=== PATIENT | male | born 1935 | race Caucasian/White ===

== ENCOUNTER 2017-04-24 09:07 | Emergency (ER) | payer MEDICARE ==
--- NOTE | 2017-04-24 10:01 | ED ---
General Adult HPI - General Chief complaint: Shortness of Breath Stated complaint: Asthma Time Seen by Provider: 04/24/17 09:54 Source: patient, RN notes reviewed Mode of arrival: ambulatory Limitations: no limitations - History of Present Illness Initial comments: Patient 81-year-old male significant past medical history for asthma, who presents emergency room today with chief complaint of cough congestion over the last 4 days. Patient states that it started as a head cold with increased rhinorrhea and drainage. He states it has gone to his chest now. He states he is coughing up phlegm at times. He states multiple colors. Patient denies any shortness breath. Denies any difficulty breathing. He does use an singular inhaler at home. Patient does admit that his appetites been down. He denies any other complaints. Patient denies any recent fever, chills, shortness of breath, chest pain, back pain, abdominal pain, vomiting, numbness or tingling, dysuria or hematuria, constipation or diarrhea, headaches or visual changes, or any other complaints. - Related Data Home Medications Medication Instructions Recorded Confirmed Budesonide/Formoterol Fumarate 2 puff INHALATION RT-BID 04/24/17 04/24/17 [Symbicort 160-4.5 Mcg Inhaler] Montelukast [Singulair] 10 mg PO HS 04/24/17 04/24/17 Pregabalin [Lyrica] 300 mg PO BID 04/24/17 04/24/17 Simvastatin (Unknown Dose) 1 tab PO HS 04/24/17 04/24/17 Previous Rx's Medication Instructions Recorded Azithromycin [Zithromax Z-pack] 0 mg PO DIRECTED #6 tab 04/24/17 Allergies Allergy/AdvReac Type Severity Reaction Status Date / Time Penicillins Allergy Unknown Verified 04/24/17 10:17 Childhood Review of Systems ROS Statement: Those systems with pertinent positive or pertinent negative responses have been documented in the HPI. ROS Other: All systems not noted in ROS Statement are negative. Past Medical History Past Medical History: Asthma, COPD, Pneumonia Additional Past Medical History / Comment(s): shingles in past History of Any Multi-Drug Resistant Organisms: None Reported Past Surgical History: No Surgical Hx Reported Past Psychological History: No Psychological Hx Reported Smoking Status: Former smoker Past Alcohol Use History: Rare Past Drug Use History: None Reported General Exam - General Exam Comments Initial Comments: General: The patient is awake and alert, in no distress, and does not appear acutely ill. Eye: Pupils are equal, round and reactive to light, extra-ocular movements are intact. No nystagmus. There is normal conjunctiva bilaterally. No signs of icterus. Ears, nose, mouth and throat: There are moist mucous membranes and no oral lesions. Neck: The neck is supple, there is no tenderness or JVD. Cardiovascular: There is a regular rate and rhythm. No murmur, rub or gallop is appreciated. Respiratory: Lungs are clear to auscultation, respirations are non-labored, breath sounds are equal. No wheezes, stridor, rales, or rhonchi. Musculoskeletal: Normal ROM, no tenderness. Strength 5/5. Sensation intact. Pulses equal bilaterally 2+. Neurological: A&O x 3. CN II-XII intact, There are no obvious motor or sensory deficits. Coordination appears grossly intact. Speech is normal. Skin: Skin is warm and dry and no rashes or lesions are noted. Psychiatric: Cooperative, appropriate mood & affect, normal judgment. Limitations: no limitations Course Vital Signs 04/24/17 09:46 Temperature 98.0 F Pulse Rate 85 Respiratory 16 Rate Blood Pressure 127/73 O2 Sat by Pulse 96 Oximetry Medical Decision Making - Medical Decision Making Case discussed in detail with attending physician Dr. Kaminski. Patient reexamined at this time shows no signs of distress resting comfortably. Patient 's x-ray reviewed and no sign of pneumonia. Patient treated for bronchitis infection. Patient advised follow-up the family doctor over the next 2 days return here to the emergency room for any symptoms increase worsen or for any other concerns. Disposition Clinical Impression: Acute bronchitis Disposition: HOME SELF-CARE Condition: Good Instructions: Acute Bronchitis (ED) Additional Instructions: Please use medication as discussed. Please follow-up with family doctor in the next 2 days of symptoms have not improved. Please return to emergency room if the symptoms increase or worsen or for any other concerns. Prescriptions: Azithromycin [Zithromax Z-pack] 0 mg PO DIRECTED #6 tab Referrals: Gus Thapa DO [Primary Care Provider] - 1-2 days Time of Disposition: 10:48
--- NOTE | 2017-04-24 10:29 | XR ---
EXAMINATION TYPE: XR chest 2V DATE OF EXAM: 04/24/2017 COMPARISON: NONE HISTORY: Shortness of breath TECHNIQUE: Frontal and lateral views of the chest are obtained. FINDINGS: Scattered senescent parenchymal changes noted. Hyperinflation compatible with COPD. No evidence for infiltrate. No evidence for atelectasis. Heart size is stable. Mediastinal structures are stable and grossly unremarkable. No evidence for hilar prominence. Degenerative changes dorsal spine. IMPRESSION: 1. No evidence for acute pulmonary disease.
[2017-04-24 11:26] VITALS: BP 142/81; PULSE 88; RESP 18; TEMP 97.3
== END 2017-04-24 11:26 | disposition home or self-care (01) ==
LOC: EC 09:07
DX: J20.9 Acute bronchitis, unspecified (principal); J44.9 Chronic obstructive pulmonary disease, unspecified; Z87.891 Personal history of nicotine dependence; Z79.52 Long term (current) use of systemic steroids; Z79.899 Other long term (current) drug therapy; Z88.0 Allergy status to penicillin
CPT/HCPCS: 71020; 99284

== ENCOUNTER → 2018-02-03 | Outpatient (CLI) | payer MEDICARE | END | disposition home or self-care (01) | LOC: LABWHC1 11:40 | PROVIDERS: ATTEND Internal Medicine Critical Care Medicine | DX: J45.901 Unspecified asthma with (acute) exacerbation (principal) | CPT/HCPCS: 36415; 82785 ==

== ENCOUNTER 2020-04-27 13:58 | Emergency (ER) | payer MEDICARE ==
[2020-04-27 14:08] VITALS: BP 136/80; PULSE 71; RESP 20; TEMP 97.9
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
--- NOTE | 2020-04-27 14:58 | XR ---
EXAMINATION TYPE: XR hand complete LT DATE OF EXAM: 04/27/2020 CLINICAL HISTORY: Pain after injury worse in second and third fingers. TECHNIQUE: Frontal, lateral and oblique images of the left hand are obtained. COMPARISON: None. FINDINGS: Osseous structures are demineralized. There is no acute fracture/dislocation evident in th e left hand. Fairly severe narrowing throughout the joint spaces in the fingers with mild to moderate spurring. Moderate to severe narrowing at base of first metacarpal. Mild to moderate soft tissue swe lling over the second through fourth fingers. IMPRESSION: There is no acute fracture or dislocation in the left hand.
== END 2020-04-27 15:34 | disposition home or self-care (01) ==
LOC: EC 13:58
DX: S60.222A Contusion of left hand, initial encounter (principal); J44.9 Chronic obstructive pulmonary disease, unspecified; Z79.51 Long term (current) use of inhaled steroids; Z88.0 Allergy status to penicillin; W01.0XXA Fall on same level from slipping, tripping and stumbling without subsequent striking against object, initial encounter; Y92.009 Unspecified place in unspecified non-institutional (private) residence as the place of occurrence of the external cause
CPT/HCPCS: 99283

== ENCOUNTER 2020-04-30 12:16 | Emergency (ER) | payer MEDICARE ==
[2020-04-30 12:31] VITALS: RESP 18; TEMP 98.6
[2020-04-30] MEDS ORDERED: SODIUM CHLORIDE 0.9% 1,000 ML IV STA (12:34)
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
[2020-04-30 13:06] LABS: Basophils # (A) 0.1 k/uL (0-0.2); Basophils % (A) 1 %; Eosinophils # (A) 0.3 k/uL (0-0.7); Eosinophils % (A) 4 %; HCT 45.1 % (39.0-53.0); HGB 15.3 gm/dL (13.0-17.5); Lymphocytes % (A) 27 %; MCH 32.2 pg (25.0-35.0); MCV 94.7 fL (80.0-100.0); Mean Platelet Volume 7.5; Monocytes # (A) 0.5 k/uL (0-1.0); Monocytes % (A) 6 %; Neutrophils # (A) 4.3 k/uL (1.3-7.7); Neutrophils % (A) 59 %; Platelet Count 221 k/uL (150-450); RBC 4.76 m/uL (4.30-5.90); RDW 13.2 % (11.5-15.5); WBC 7.4 k/uL (3.8-10.6)
[2020-04-30 13:14] LABS: Lactic Acid, Venous 1.1 mmol/L (0.7-2.0)
[2020-04-30 13:15] LABS: Partial Thromboplastin Time 23.4 sec (22.0-30.0); Prothrombin Time 10.2 sec (9.0-12.0)
[2020-04-30 13:18] LABS: ALT 17 U/L (4-49); AST 26 U/L (17-59); African American GFR (CKD) 81 (>60 ml/min/1.73 sqM); Albumin 4.4 g/dL (3.5-5.0); Alkaline Phosphatase 93 U/L (38-126); Anion Gap 10 mmol/L; Blood Urea Nitrogen 17 mg/dL (9-20); C Reactive Protein <5.0 mg/L (<10.0); Calcium 10.1 mg/dL (8.4-10.2); Carbon Dioxide 21 mmol/L (22-30); Chloride 108 mmol/L (98-107); Glucose 100 mg/dL (74-99); Non-African American GFR(CKD) 70 (>60 ml/min/1.73 sqM); Potassium 4.3 mmol/L (3.5-5.1); Sodium 139 mmol/L (137-145); Total Bilirubin 0.8 mg/dL (0.2-1.3); Total Protein 7.3 g/dL (6.3-8.2)
--- NOTE | 2020-04-30 13:30 | XR ---
EXAMINATION TYPE: XR chest 1V portable DATE OF EXAM: 04/30/2020 COMPARISON: Chest x-ray April 24, 2017. HISTORY: Weakness and shortness of breath TECHNIQUE: Single AP portable frontal upright view of the chest is obtained. FINDINGS: There is some chronic parenchymal changes bilaterally with diminished inspiration and patc hy left basilar opacity. The cardiac silhouette size is mildly enlarged with atherosclerotic aorta. The osseous structures are somewhat demineralized. IMPRESSION: Suboptimal due to poor inspiration. Mild cardiomegaly may be exaggerated by poor inspira tion. Chronic parenchymal changes with patchy left basilar atelectasis and/or infiltrate.
[2020-04-30] MEDS ORDERED: ONDANSETRON 4 MG ODT STARTER PACK 2 TAB BTL PO STA (14:10)
[2020-04-30 14:40] VITALS: BP 145/98; PULSE 80
== END 2020-04-30 14:40 | disposition home or self-care (01) ==
LOC: EC 12:16
DX: R19.7 Diarrhea, unspecified (principal); R53.1 Weakness; J44.9 Chronic obstructive pulmonary disease, unspecified; R63.0 Anorexia; R11.0 Nausea; Z20.828 Contact with and (suspected) exposure to other viral communicable diseases; Z79.51 Long term (current) use of inhaled steroids; Z88.1 Allergy status to other antibiotic agents; Z88.0 Allergy status to penicillin; Z98.890 Other specified postprocedural states
CPT/HCPCS: 93005; 80053; 82140; 83605; 83735; 84443; 84484; 85025; 85610; 85730; 86140; 87635; 71045; 99285; 96360; 96361; S0119

== ENCOUNTER 2022-09-21 18:42 | Observation (INO) | payer OTHER, BC ==
--- NOTE | 2022-09-21 18:53 | ED ---
Weakness HPI - General Stated complaint: Weakness Time Seen by Provider: 09/21/22 18:44 Source: patient, EMS, RN notes reviewed Mode of arrival: EMS - History of Present Illness Initial comments: 87-year-old male with a history of asthma the past and possibly early dementia who is brought in by EMS because of progressive weakness today and decreased oral intake. He celebrated his 87th yesterday and did not finish his meal has normally would have in today he's had very little oral intake. No reports of any falls trauma fevers chills sweats. Per paramedics she was noted to go into a brief episode less than 1 minute of what appear to be atrial fibrillation with a rapid ventricular response rate in the ambulance prior to him being hooked up to a monitor. This resolved. The patient himself denies any history of atrial fibrillation. Currently no chest pain he denies any fevers chills sweats MD Complaint: generalized weakness, lack of energy - Related Data Home Medications Medication Instructions Recorded Confirmed Budesonide/Formoterol Fumarate 2 puff INHALATION RT-BID 04/24/17 04/25/17 [Symbicort 160-4.5 Mcg Inhaler] Montelukast [Singulair] 10 mg PO HS 04/24/17 04/25/17 Albuterol Inhaler [Ventolin Hfa 1 - 2 puff INHALATION RT-Q6H PRN 04/25/17 04/25/17 Inhaler] Simvastatin 40 mg PO HS 04/25/17 04/25/17 Pregabalin [Lyrica] 150 mg PO TID 09/21/22 09/21/22 Allergies Allergy/AdvReac Type Severity Reaction Status Date / Time ciprofloxacin [From Cipro] Allergy Unknown Verified 09/21/22 20:12 Penicillins Allergy Unknown Verified 09/21/22 20:12 Childhood Review of Systems ROS Statement: Those systems with pertinent positive or pertinent negative responses have been documented in the HPI. ROS Other: All systems not noted in ROS Statement are negative. Past Medical History Past Medical History: Asthma, COPD Additional Past Medical History / Comment(s): shingles L groin/L hip/buttock in past and has post herpetic neuralgia, pt is currently being tested for possible glaucoma. History of Any Multi-Drug Resistant Organisms: None Reported Past Surgical History: Hernia Repair Additional Past Surgical History / Comment(s): colonoscopy, hemorrhoidectomy, arm surgery after injury (cannot recall laterality). Past Anesthesia/Blood Transfusion Reactions: No Reported Reaction Past Psychological History: No Psychological Hx Reported Smoking Status: Never smoker Past Alcohol Use History: Rare Past Drug Use History: None Reported - Past Family History Father History Unknown: Yes Additional Family Medical History / Comment(s): Father in WWII, when pt was young. Mother History Unknown: Yes Additional Family Medical History / Comment(s): Mother left when pt was 5 yrs old. Pt was raised by his grandmother. General Exam - General Exam Comments Initial Comments: This is a well-developed well-nourished awake alert male he appears to be oriented x3 General appearance: alert, in no apparent distress Head exam: Present: atraumatic, normocephalic, normal inspection Eye exam: Present: normal appearance, PERRL, EOMI. Absent: scleral icterus, co njunctival injection, periorbital swelling ENT exam: Present: mucous membranes dry Neck exam: Present: normal inspection. Absent: tenderness, meningismus, lymphadenopathy Respiratory exam: Present: decreased breath sounds. Absent: respiratory distress, wheezes, rales, rhonchi, stridor Cardiovascular Exam: Present: regular rate, normal rhythm, normal heart sounds. Absent: systolic murmur, diastolic murmur, rubs, gallop, clicks GI/Abdominal exam: Present: soft, normal bowel sounds. Absent: distended, tenderness, guarding, rebound, rigid Extremities exam: Present: normal inspection, full ROM, normal capillary refill. Absent: tenderness, pedal edema, joint swelling, calf tenderness Back exam: Present: normal inspection Neurological exam: Present: alert, oriented X3, CN II-XII intact Psychiatric exam: Present: normal affect, normal mood Skin exam: Present: warm, dry, intact, normal color. Absent: rash Course Vital Signs 09/21/22 18:43 Temperature 97.3 F L Pulse Rate 72 Respiratory 16 Rate Blood Pressure 110/74 O2 Sat by Pulse 96 Oximetry EKG Findings - EKG Results: EKG: interpreted by SANCHO (EKG interpreted by me sinus rhythm rate 75 first 3 AV block [place] interval 224 QRS duration 76 daily since QTC 373/[address]-T wave changes) Medical Decision Making - Medical Decision Making Did discuss findings with the patient and family members were present patient apparently took his Lyrica yesterday with 2 beers while he was celebrating his birthday but additionally he had had multiple dizzy episodes at home this morning and also in the EMS rig and route to. He was reported to have had A. fib RVR that appeared on the monitor but they were unable to capture the event. Of this patient will be admitted for evaluation by cardiology concern for paroxysmal atrial fibrillation which the patient is ever had before. This including his weakness. Laboratory thus far is unremarkable UA pending. I did discuss this with Debi hogan for Dr. Guajardo.Was pt. sent in by a medical professional or institution (, PA, [employer], urgent care, hospital, or alf...) When possible be specific @ -Paramedics upon arrival Did you speak to anyone other than the patient for history (EMS, parent, family, police, friend...)? What history was obtained from this source @ -Paramedics upon arrival Did you review nursing and triage notes (agree or disagree)? Why? @ -I reviewed and agree with nursing and triage notes Were old charts reviewed (outside hosp., previous admission, EMS record, old EKG, old radiological studies, urgent care reports/EKG's, alf records)? Report findings @ -No old charts were reviewed Differential Diagnosis (chest pain, altered mental status, abdominal pain women, abdominal pain men, vaginal bleeding, weakness, fever, dyspnea, syncope, heada martha, dizziness, GI bleed, back pain, seizure, CVA, palpatations, mental health, musculoskeletal)? @ -Weakness, dehydration, paroxysmal atrial fibrillation EKG interpreted by me (3pts min.). @ -As above X-rays interpreted by me (1pt min.). @ -As above CT interpreted by me (1pt min.). @ -As above U/S interpreted by me (1pt. min.). @ -None done What testing was considered but not performed or refused? (CT, X-rays, U/S, labs)? Why? @ -None What meds were considered but not given or refused? Why? @ -None Did you discuss the management of the patient with other professionals (professionals i.e. , PA, [employer], lab, RT, psych nurse, social welfare research worker, wait[place] tribunal member, teacher, chief analytics officer, oil field caser)? Give summary @ -Debi hogan for Dr. Guajardo Was smoking cessation discussed for >3mins.? @ -No Was critical care preformed (if so, how long)? @ -No Were there social determinants of health that impacted care today? How? (Ho melessness, low income, unemployed, alcoholism, drug addiction, transportation, low edu. Level, literacy, decrease access to med. care, usp, rehab)? @ -No Was there de-escalation of care discussed even if they declined (Discuss DNR or withdrawal of care, Hospice)? DNR status @ -No What co-morbidities impacted this encounter? (DM, HTN, Smoking, COPD, CAD, Cancer, CVA, ARF, Chemo, Hep., AIDS, mental health diagnosis, sleep apnea, morbid obesity)? @ -[Dementia Was patient admitted / discharged? Hospital course, mention meds given and route, prescriptions, significant lab abnormalities, going to OR and other pertinent info. @ -hospital course the patient was admitted for inpatient evaluation and treatment patient does demonstrate generalized weakness some evidence clinically of dehydration additionally concern for paroxysmal atrial fibrillation. Undiagnosed new problem with uncertain prognosis? @ -Paroxysmal rapid atrial fibrillation Drug Therapy requiring intensive monitoring for toxicity (Heparin, Nitro, Insulin, Cardizem)? @ -No Were any procedures done? @ -No Diagnosis/symptom? @ -Generalized weakness, dizzy episodes, paroxysmal atrial fibrillation Acute, or Chronic, or Acute on Chronic? @ -Acute Uncomplicated (without systemic symptoms) or Complicated (systemic symptoms)? @ -default Side effects of treatment? @ -No Exacerbation, Progression, or Severe Exacerbation? @ -No Poses a threat to life or bodily function? How? (Chest pain, [place], [place], pneumonia, PE, COPD, DKA, ARF, appy, cholecystitis, CVA, Diverticulitis, Homicidal, Suicidal, threat to staff... and all critical care pts) @ -No - Lab Data Result diagrams: 09/21/22 18:57 09/21/22 18:57 Lab Results 09/21/22 09/21/22 09/21/22 Range/Units 18:57 18:57 18:57 WBC 7.3 (3.8-10.6) k/uL RBC 4.28 L (4.30-5.90) m/uL Hgb 13.5 (13.0-17.5) gm/dL Hct 40.3 (39.0-53.0) % MCV 94.2 (80.0-100.0) fL MCH 31.5 (25.0-35.0) pg MCHC 33.4 (31.0-37.0) g/dL RDW 12.9 (11.5-15.5) % Plt Count 235 (150-450) k/uL MPV 8.0 Neutrophils % 57 % Lymphocytes % 32 % Monocytes % 6 % Eosinophils % 3 % Basophils % 1 % Neutrophils # 4.1 (1.3-7.7) k/uL Lymphocytes # 2.3 (1.0-4.8) k/uL Monocytes # 0.5 (0-1.0) k/uL Eosinophils # 0.2 (0-0.7) k/uL Basophils # 0.0 (0-0.2) k/uL Sodium 138 (137-145) mmol/L Potassium 4.1 (3.5-5.1) mmol/L Chloride 109 H (98-107) mmol/L Carbon Dioxide 19 L (22-30) mmol/L Anion Gap 10 mmol/L BUN 17 (9-20) mg/dL Creatinine 0.98 (0.66-1.25) mg/dL Est GFR (CKD-EPI)AfAm 82 (>60 ml/min/1.73 sqM) Est GFR (CKD-EPI)NonAf 71 (>60 ml/min/1.73 sqM) Glucose 93 (74-99) mg/dL Plasma Lactic Acid Derek 0.9 (0.7-2.0) mmol/L Calcium 9.5 (8.4-10.2) mg/dL Magnesium 1.9 (1.6-2.3) mg/dL Total Bilirubin 1.0 (0.2-1.3) mg/dL AST 25 (17-59) U/L ALT 13 (4-49) U/L Alkaline Phosphatase 82 (38-126) U/L Creatine Kinase 45 L (55-170) U/L Troponin I (0.000-0.034) ng/mL Total Protein 6.2 L (6.3-8.2) g/dL Albumin 3.6 (3.5-5.0) g/dL Lipase 100 (23-300) U/L TSH 1.680 (0.465-4.680) mIU/L Influenza Type A (PCR) (Not Detectd) Influenza Type B (PCR) (Not Detectd) RSV (PCR) (Not Detectd) SARS-CoV-2 (PCR) (Not Detectd) 09/21/22 09/21/22 Range/Units 18:57 18:57 WBC (3.8-10.6) k/uL RBC (4.30-5.90) m/uL Hgb (13.0-17.5) gm/dL Hct (39.0-53.0) % MCV (80.0-100.0) fL MCH (25.0-35.0) pg MCHC (31.0-37.0) g/dL RDW (11.5-15.5) % Plt Count (150-450) k/uL MPV Neutrophils % % Lymphocytes % % Monocytes % % Eosinophils % % Basophils % % Neutrophils # (1.3-7.7) k/uL Lymphocytes # (1.0-4.8) k/uL Monocytes # (0-1.0) k/uL Eosinophils # (0-0.7) k/uL Basophils # (0-0.2) k/uL Sodium (137-145) mmol/L Potassium (3.5-5.1) mmol/L Chloride (98-107) mmol/L Carbon Dioxide (22-30) mmol/L Anion Gap mmol/L BUN (9-20) mg/dL Creatinine (0.66-1.25) mg/dL Est GFR (CKD-EPI)AfAm (>60 ml/min/1.73 sqM) Est GFR (CKD-EPI)NonAf (>60 ml/min/1.73 sqM) Glucose (74-99) mg/dL Plasma Lactic Acid Derek (0.7-2.0) mmol/L Calcium (8.4-10.2) mg/dL Magnesium (1.6-2.3) mg/dL Total Bilirubin (0.2-1.3) mg/dL AST (17-59) U/L ALT (4-49) U/L Alkaline Phosphatase (38-126) U/L Creatine Kinase (55-170) U/L Troponin I <0.012 (0.000-0.034) ng/mL Total Protein (6.3-8.2) g/dL Albumin (3.5-5.0) g/dL Lipase (23-300) U/L TSH (0.465-4.680) mIU/L Influenza Type A (PCR) Not Detected (Not Detectd) Influenza Type B (PCR) Not Detected (Not Detectd) RSV (PCR) Not Detected (Not Detectd) SARS-CoV-2 (PCR) Not Detected (Not Detectd) - Radiology Data Interpreted by me: I did interpret the imaging CT showed no acute processes as did the x-rays show no acute processes. Disposition Clinical Impression: Paroxysmal atrial fibrillation, Weakness, Dizziness, History of dementia Disposition: ADMITTED IP TO THIS HOSP Condition: Stable Referrals: Gus Thapa DO [Primary Care Provider] - 1-2 days Decision Date: 09/21/22 Decision Time: 20:43
[2022-09-21 19:14] LABS: Basophils % (A) 1 %; Eosinophils # (A) 0.2 k/uL (0-0.7); Eosinophils % (A) 3 %; HCT 40.3 % (39.0-53.0); HGB 13.5 gm/dL (13.0-17.5); Lymphocytes # (A) 2.3 k/uL (1.0-4.8); Lymphocytes % (A) 32 %; MCH 31.5 pg (25.0-35.0); MCHC 33.4 g/dL (31.0-37.0); MCV 94.2 fL (80.0-100.0); Monocytes # (A) 0.5 k/uL (0-1.0); Monocytes % (A) 6 %; Neutrophils # (A) 4.1 k/uL (1.3-7.7); Neutrophils % (A) 57 %; Platelet Count 235 k/uL (150-450); RBC 4.28 m/uL (4.30-5.90); RDW 12.9 % (11.5-15.5); WBC 7.3 k/uL (3.8-10.6)
--- NOTE | 2022-09-21 19:15 | XR ---
EXAMINATION TYPE: XR chest 2V DATE OF EXAM: 09/21/2022 7:12 PM COMPARISON: Chest x-ray 04/30/2020 TECHNIQUE: XR chest 2V . CLINICAL INDICATION:Male, 87 years old with history of Weakness; FINDINGS: Lungs/Pleura: There is no evidence of pleural effusion, focal consolidation, or pneumothorax. Pulmonary vascularity: Unremarkable. Heart/mediastinum: Cardiomediastinal silhouette is unremarkable. Atherosclerotic calcifications are seen in the aorta. Musculoskeletal: Multiple level degenerative disc disease changes seen throughout the spine. IMPRESSION: No acute cardiopulmonary disease/process.
[2022-09-21 19:22] LABS: ALT 13 U/L (4-49); AST 25 U/L (17-59); African American GFR (CKD) 82 (>60 ml/min/1.73 sqM); Albumin 3.6 g/dL (3.5-5.0); Alkaline Phosphatase 82 U/L (38-126); Anion Gap 10 mmol/L; Blood Urea Nitrogen 17 mg/dL (9-20); Calcium 9.5 mg/dL (8.4-10.2); Carbon Dioxide 19 mmol/L (22-30); Chloride 109 mmol/L (98-107); Creatine Kinase 45 U/L (55-170); Glucose 93 mg/dL (74-99); Lipase 100 U/L (23-300); Magnesium 1.9 mg/dL (1.6-2.3); Non-African American GFR(CKD) 71 (>60 ml/min/1.73 sqM); Potassium 4.1 mmol/L (3.5-5.1); Sodium 138 mmol/L (137-145); Total Protein 6.2 g/dL (6.3-8.2)
--- NOTE | 2022-09-21 20:19 | CT ---
EXAMINATION TYPE: CT brain wo con CT DLP: 1204.1 mGycm, Automated exposure control for dose reduction was used. DATE OF EXAM: 09/21/2022 8:12 PM COMPARISON: No relevant priors. CLINICAL INDICATION:Male, 87 years old with history of altered mental status, AMS TECHNIQUE: Brain: Axial CT images of the brain were obtained with coronal and sagittal reformats created and rev iewed. Contrast used: None. Oral contrast used: None. FINDINGS: Brain: Extra-axial spaces: No abnormal extra-axial fluid collections. Ventricular system: Dilatation in proportion to cerebral atrophy. Cerebral parenchyma: Mild cerebral atrophy. No acute intraparenchymal hemorrhage or mass effect. Rj ateral remote lacunar injuries of the caudate. The valderrama-white junction is well differentiated. Scatte red hypoattenuating areas are seen within the white matter. Cerebellum: Unremarkable. Mass effect: No evidence of midline shift. Intracranial vasculature: Atherosclerotic calcifications of the intracranial vessels. Soft tissues: Normal. Calvarium/osseous structures: No depressed skull fracture. Paranasal sinuses and mastoid air cells: Clear. Mastoid air cells are Clear Visualized orbits: Orbital contents are intact. IMPRESSION: 1. No acute intracranial process. 2. Nonspecific white matter changes, likely secondary to chronic small vessel ischemic disease. 3. Remote lacunar injuries of the caudate bilaterally.
[2022-09-21] MEDS ORDERED: ACETAMINOPHEN TAB 325 MG TAB PO PRN (20:43)
[2022-09-21] MEDS ORDERED: NALOXONE 0.4 MG/ML 1 ML VIAL IV PRN (20:43)
[2022-09-21] MEDS ORDERED: SODIUM CHLORIDE 0.9% 1,000 ML IV SCH (20:45)
[2022-09-21] MEDS ORDERED: ALBUTEROL NEBULIZED 2.5 MG/3 ML INHALATION PRN (20:45)
[2022-09-21] MEDS ORDERED: PREGABALIN 75 MG CAP PO SCH (22:00)
[2022-09-21] MEDS: MONTELUKAST 10 MG TAB PO SCH (22:11)
[2022-09-22] MEDS: LACTATED RINGERS 1,000 ML IV SCH ×2 (05:59→20:43)
[2022-09-22 08:22] LABS: Calcium 9.5 mg/dL (8.4-10.2); Magnesium 2.1 mg/dL (1.6-2.3); Potassium 4.2 mmol/L (3.5-5.1)
[2022-09-22] MEDS ORDERED: PREGABALIN 75 MG CAP PO SCH (09:00)
[2022-09-22] MEDS: SYMBICORT 160-4.5 MCG INHALER INHALATION SCH ×2 (09:07→21:47)
--- NOTE | 2022-09-22 09:54 | P.HPIM ---
History of Present Illness This is a pleasant 87 years old male with past medical history of asthma, hyperlipidemia Patient states that he comes to the hospital because his son called for EMS when he had an attack of presyncope and dizziness which lasted for about 15 minutes. Currently he denies any dizziness or presyncope. He denies vertigo. He denies headache, no weakness numbness or blurred vision or speech. He denies chest pain or dyspnea. He denies abdominal pain vomiting or diarrhea, no urinary complaints like urgency or dysuria. He has sloppy tied for about 10 days and his been feeling weak over the last 2 days at least and embedded. He states that his weakness is better today and he ate better this morning. He denies smoking alcohol or illicit tracts Patient states that he takes Lyrica for left lower back shingles about 10 years ago, and was taken 150 mg and he agrees to lower to 100 mg twice a day Patient hemodynamically stable, afebrile CBC is unremarkable, BMP, liver enzymes are unremarkable as well Troponin 3 are negative less than 0.012. Creatinine kinase 45. TSH normal 1.6. Lipase low 100. 3 viruses of not detected, and flow on Ziac, RSV and coronavirus Chest x-ray: No Acute process. EKG: Normal sinus rhythm at [address]-T changes. First-degree AV block CT of the brain: No acute process. Remote lacunar injury to the caudate bilaterally patient was admitted with cardiology consult, although the patient had a normal EKG but there was mention of reflux episode of atrial fibrillation and RVR in the ambulance. Review of Systems Review of systems CONSTITUTIONAL: No fever, no malaise, no fatigue. HEENT: No recent visual problems or hearing problems. Denied any sore throat. CARDIOVASCULAR: No orthopnea, PND, no palpitations, no syncope. PULMONARY: No chest wall tenderness, no hemoptysis. GASTROINTESTINAL: No diarrhea, no nausea, no vomiting, no abdominal pain. Normoactive bowel sounds. NEUROLOGICAL: No headaches, no weakness, no numbness. HEMATOLOGICAL: Denies any bleeding or petechiae. GENITOURINARY: Denies any burning micturition, frequency, or urgency. MUSCULOSKELETAL/RHEUMATOLOGICAL: Denies any joint pain, swelling, or any muscle pain. ENDOCRINE: Denies any polyuria or polydipsia. Past Medical History Past Medical History: Asthma, Hyperlipidemia Additional Past Medical History / Comment(s): shingles L groin/L hip/buttock in past and has post herpetic neuralgia, glaucoma. History of Any Multi-Drug Resistant Organisms: None Reported Past Surgical History: Hernia Repair Additional Past Surgical History / Comment(s): colonoscopy, hemorrhoidectomy, arm surgery after injury (cannot recall laterality). Past Anesthesia/Blood Transfusion Reactions: No Reported Reaction Past Psychological History: No Psychological Hx Reported Additional Psychological History / Comment(s): Pt resides with his spouse. He is an [employer] who served over in [employer]. He is independent. Smoking Status: Never smoker Past Alcohol Use History: Rare Additional Past Alcohol Use History / Comment(s): Pt started smoking in 1954 and quit in 1976 Past Drug Use History: None Reported - Past Family History Father History Unknown: Yes Additional Family Medical History / Comment(s): Father in WWII, when pt was young. Mother History Unknown: Yes Additional Family Medical History / Comment(s): Mother left when pt was 5 yrs old. Pt was raised by his grandmother. Medications and Allergies Home Medications Medication Instructions Recorded Confirmed Type Budesonide/Formoterol Fumarate 2 puff INHALATION RT-BID 04/24/17 09/21/22 History [Symbicort 160-4.5 Mcg Inhaler] Montelukast [Singulair] 10 mg PO HS 04/24/17 09/21/22 History Albuterol Inhaler [Ventolin Hfa 1 - 2 puff INHALATION RT-Q6H PRN 04/25/17 09/21/22 History Inhaler] Simvastatin 40 mg PO DIRECTED 04/25/17 09/21/22 History Pregabalin [Lyrica] 150 mg PO TID 09/21/22 09/21/22 History Allergies Allergy/AdvReac Type Severity Reaction Status Date / Time ciprofloxacin [From Cipro] Allergy Unknown Verified 09/21/22 20:12 Penicillins Allergy Unknown Verified 09/21/22 20:12 Childhood Physical Exam Vitals: Vital Signs Temp Pulse Pulse Resp BP BP Pulse Ox 09/22/22 04:00 62 18 136/73 97 09/22/22 00:00 98 F 77 18 136/77 95 09/21/22 21:37 98 F 76 18 130/73 94 L 09/21/22 20:54 82 17 119/88 96 09/21/22 18:43 97.3 F L 72 16 110/74 96 Intake and Output 09/21/22 09/22/22 09/22/22 22:59 06:59 14:59 Other: Weight 81.647 kg GENERAL: The patient is alert and oriented x3, not in any acute distress. Well developed, well nourished. HEENT: Pupils are round and equally reacting to light. EOMI. No scleral icterus. No conjunctival pallor. Normocephalic, atraumatic. No pharyngeal erythema. No thyromegaly. CARDIOVASCULAR: S1 and S2 present. No murmurs, rubs, or gallops. PULMONARY: Chest is clear to auscultation, no wheezing or crackles. ABDOMEN: Soft, nontender, nondistended, normoactive bowel sounds. No palpable organomegaly. MUSCULOSKELETAL: No joint swelling or deformity. EXTREMITIES: No cyanosis, clubbing, or pedal edema. NEUROLOGICAL: Gross neurological examination did not reveal any focal deficits. SKIN: No rashes. no petechiae. Results CBC & Chem 7: 09/21/22 18:57 09/22/22 07:25 Labs: Abnormal Lab Results - Last 24 Hours (Table) 09/21/22 09/21/22 Range/Units 18:57 18:57 RBC 4.28 L (4.30-5.90) m/uL Chloride 109 H (98-107) mmol/L Carbon Dioxide 19 L (22-30) mmol/L Creatine Kinase 45 L (55-170) U/L Total Protein 6.2 L (6.3-8.2) g/dL Thrombosis Risk Factor Assmnt - Choose All That Apply Any of the Below Risk Factors Present?: Yes Each Risk Factor Represents 3 Points: Age 75 years or older Thrombosis Risk Factor Assessment Total Risk Factor Score: 3 Thrombosis Risk Factor Assessment Level: Moderate Risk Assessment and Plan Assessment: Dizziness, presyncope which lasted for 15 minutes Questionable episode of atrial fibrillation Utilized weakness with low appetite. Rule out urinary tract infection, History of asthma Hyperlipidemia Report BILATERAL caudate lacunar injuries, incidental findings on CAT scan Continue gentle hydration Plan: Continue with telemetry monitoring Check echocardiogram Cardiology consult Continue with gentle hydration, currently on Ringer lactate 50 mL per hour Labs and medication were reviewed.. Continue same treatment. Continue with symptomatic treatment. Resume home medication. Monitor labs and vitals. DVT and GI prophylaxis. Further recommendations as per clinical course of the patient DVT prophylaxis: Subcutaneous heparin GI Prophylaxis: Pepcid PT/OT: Ordered and Pending Prognosis is guarded
[2022-09-22] MEDS: FAMOTIDINE 20 MG/2 ML VIAL IV SCH ×2 (10:37→20:43)
[2022-09-22] MEDS: HEPARIN SODIUM,PORCINE/PF 5,000 UNIT/0.5 ML SYRINGE SQ SCH ×2 (10:39→20:43)
--- NOTE | 2022-09-22 13:27 | P.CRDCN ---
History of Present Illness Consult date: 09/22/22 Requesting physician: Andra Guajardo Reason for Consult (text): weakness, dizziness, suspected paroxysmal atrial fibrillation Chief complaint: dizziness History of present illness: This is a pleasant 87-year-old gentleman with a history of hyperlipidemia, asthma and glaucoma as well as questionable dementia. The patient is a poor historian stating his keeps track of his medical history. Has no known history of hypertension or diabetes and no history of coronary artery disease. He does not follow with a sharepoint engineer. Presented via EMS after he became dizzy at home. Apparently was having dinner with his family did not complete his meal which she normally does. According to the patient his appetite has been poor over the past week and he's not been eating or drinking much. He became dizzy and family wanted him evaluated in the emergency department was question of paroxysmal atrial fibrillation noted by EMS however patient was not on a monitor at that time. EKG in admission showed sinus mechanism. Vital signs have been stable. He's been afebrile. Chest x-ray showed no acute cardiopulmonary disease/process. Computed tomography scan of the brain showed no acute intrac ranial process, nonspecific white matter changes likely secondary to chronic small vessel ischemic disease and remote lacunar injuries of the caudate bilaterally. Upon Review of telemetry appears patient has been mostly in sinus mechanism with frequent episodes of PAT but no clear evidence of atrial fibrillation. He denies further complaints of dizziness. Labs showed sodium 138, potassium 4.1, normal white blood cell count and hemoglobin, normal renal function, troponins negative 3 and normal TSH. He denies any complaints of worsening shortness of breath, orthopnea or PND. Denies any complaint of edema. Denies feeling any palpitations. Denies any chest discomfort. He's had no syncope or near syncope. Past Medical History Past Medical History: Asthma, Hyperlipidemia Additional Past Medical History / Comment(s): shingles L groin/L hip/buttock in past and has post herpetic neuralgia, glaucoma. History of Any Multi-Drug Resistant Organisms: None Reported Past Surgical History: Hernia Repair Additional Past Surgical History / Comment(s): colonoscopy, hemorrhoidectomy, arm surgery after injury (cannot recall laterality). Past Anesthesia/Blood Transfusion Reactions: No Reported Reaction Past Psychological History: No Psychological Hx Reported Additional Psychological History / Comment(s): Pt resides with his spouse. He is an [employer] who served over in [employer]. He is independent. Smoking Status: Never smoker Past Alcohol Use History: Rare Additional Past Alcohol Use History / Comment(s): Pt started smoking in 1954 and quit in 1976 Past Drug Use History: None Reported - Past Family History Father History Unknown: Yes Additional Family Medical History / Comment(s): Father in WWII, when pt was young. Mother History Unknown: Yes Additional Family Medical History / Comment(s): Mother left when pt was 5 yrs ol d. Pt was raised by his grandmother. Medications and Allergies Home Medications Medication Instructions Recorded Confirmed Type Budesonide/Formoterol Fumarate 2 puff INHALATION RT-BID 04/24/17 09/21/22 History [Symbicort 160-4.5 Mcg Inhaler] Montelukast [Singulair] 10 mg PO HS 04/24/17 09/21/22 History Albuterol Inhaler [Ventolin Hfa 1 - 2 puff INHALATION RT-Q6H PRN 04/25/17 09/21/22 History Inhaler] Simvastatin 40 mg PO DIRECTED 04/25/17 09/21/22 History Pregabalin [Lyrica] 150 mg PO TID 09/21/22 09/21/22 History Allergies Allergy/AdvReac Type Severity Reaction Status Date / Time ciprofloxacin [From Cipro] Allergy Unknown Verified 09/21/22 20:12 Penicillins Allergy Unknown Verified 09/21/22 20:12 Childhood Physical Exam Vitals: Vital Signs Temp Pulse Pulse Resp BP BP Pulse Ox 09/22/22 08:20 97.9 F 77 18 118/72 98 09/22/22 04:00 62 18 136/73 97 09/22/22 00:00 98 F 77 18 136/77 95 09/21/22 21:37 98 F 76 18 130/73 94 L 09/21/22 20:54 82 17 119/88 96 09/21/22 18:43 97.3 F L 72 16 110/74 96 Intake and Output 09/21/22 09/22/22 09/22/22 22:59 06:59 14:59 Other: Weight 81.647 kg PHYSICAL EXAMINATION: This is a 87-year-old gentleman in no apparent distress at the time of my examination. HEENT: Head is atraumatic, normocephalic. Pupils are equal, round. Sclerae anicteric. Conjunctivae are clear. Mucous membranes of the mouth are moist. Neck is supple. There is no elevated jugular venous pressure. No carotid bruit is heard. CHEST EXAMINATION: Clear to auscultation bilaterally. No wheezes rales or rhonchi. Respirations even and nonlabored. HEART EXAMINATION: Heart regular, positive S1 and S2. No S3. No S4. With a soft systolic murmur at the base. ABDOMEN: Soft, nontender. Bowel sounds are heard. No organomegaly noted. EXTREMITIES: 2+ peripheral pulses with no evidence of peripheral edema and no calf tenderness noted. NEUROLOGIC EXAMINATION: Patient is awake, alert and oriented x3. Results 09/21/22 18:57 09/22/22 07:25 Cardiac Enzymes 09/21/22 09/21/22 09/21/22 Range/Units 18:57 18:57 21:10 AST 25 (17-59) U/L Troponin I <0.012 <0.012 (0.000-0.034) ng/mL 09/22/22 Range/Units 00:14 AST (17-59) U/L Troponin I 0.013 (0.000-0.034) ng/mL CBC 09/21/22 Range/Units 18:57 WBC 7.3 (3.8-10.6) k/uL RBC 4.28 L (4.30-5.90) m/uL Hgb 13.5 (13.0-17.5) gm/dL Hct 40.3 (39.0-53.0) % Plt Count 235 (150-450) k/uL Comprehensive Metabolic Panel 09/21/22 09/22/22 Range/Units 18:57 07:25 Sodium 138 139 (137-145) mmol/L Potassium 4.1 4.2 (3.5-5.1) mmol/L Chloride 109 H 106 (98-107) mmol/L Carbon Dioxide 19 L 26 (22-30) mmol/L BUN 17 20 (9-20) mg/dL Creatinine 0.98 0.98 (0.66-1.25) mg/dL Glucose 93 88 (74-99) mg/dL Calcium 9.5 9.5 (8.4-10.2) mg/dL AST 25 (17-59) U/L ALT 13 (4-49) U/L Alkaline Phosphatase 82 (38-126) U/L Total Protein 6.2 L (6.3-8.2) g/dL Albumin 3.6 (3.5-5.0) g/dL Current Medications Generic Name Dose Route Start Last Admin Trade Name Freq PRN Reason Stop Dose Admin Acetaminophen 650 mg 09/21/22 20:43 Acetaminophen Tab 325 Mg Tab PO Q6HR PRN Mild Pain or Fever > 100.5 Albuterol Sulfate 2.5 mg 09/21/22 20:45 Albuterol Nebulized 2.5 Mg/3 Ml INHALATION RT-Q6H PRN Shortness Of Breath Budesonide/Formoterol Fumarate 2 puff 09/22/22 08:00 09/22/22 09:07 Symbicort 160-4.5 Mcg Inhaler INHALATION 2 puff RT-BID STACEY Administration Famotidine 20 mg 09/22/22 09:00 09/22/22 10:37 Famotidine 20 Mg/2 Ml Vial IV 20 mg Q12HR STACEY Administration Heparin Sodium (Porcine) 5,000 unit 09/22/22 09:00 09/22/22 10:39 Heparin Sodium,Porcine/Pf 5,000 Unit/0.5 Ml Syringe SQ 5,000 unit Q12HR STACEY Administration Lactated Ringer's 1,000 mls @ 50 mls/hr 09/21/22 23:15 09/22/22 05:59 Lactated Ringers IV 50 mls/hr .Q20H STACEY Administration Montelukast Sodium 10 mg 09/21/22 21:00 09/21/22 22:11 Montelukast 10 Mg Tab PO 10 mg HS STACEY Administration Naloxone HCl 0.2 mg 09/21/22 20:43 Naloxone 0.4 Mg/Ml 1 Ml Vial IV Q2M PRN Opioid Reversal Non-Formulary Medication 40 mg 09/21/22 20:45 Simvastatin [Simvastatin] PO DIRECTED STACEY Pregabalin 100 mg 09/22/22 21:00 Pregabalin 100 Mg Cap PO BID STACEY Intake and Output 09/21/22 09/22/22 09/22/22 22:59 06:59 14:59 Other: Weight 81.647 kg 09/21/22 18:57 09/22/22 07:25 EKG Interpretations (text) Normal sinus rhythm Assessment and Plan Assessment: #1 symptoms of dizziness and weakness, could be secondary to decreased oral intake over the past week dehydration #2 brief episodes PAT, asymptomatic #3 asthma #4 hyperlipidemia Plan: From cardiology's perspective we will obtain a 2-D echo with Doppler study. Continue to monitor on telemetry. We'll add low-dose beta manny. We will continue to follow the patient and make further recommendations accordingly. IMMIGRATION CONSULTANT note has been reviewed, I agree with a documented findings and plan of care. Patient was seen and examined.
[2022-09-22] MEDS: METOPROLOL TARTRATE 25 MG TAB PO SCH ×2 (16:17→20:43)
[2022-09-22 20:12] LABS: Appearance,Urine Clear (Clear); Bilirubin,Urine Negative (Negative); Blood,Urine Negative (Negative); Color,Urine Light Yellow; Glucose,Urine (UA) Negative (Negative); Ketones,Urine Negative (Negative); Leukocyte Esterase,Urine Negative (Negative); Nitrite,Urine Negative (Negative); Protein,Urine Negative (Negative); Specific Gravity,Urine 1.008 (1.001-1.035); Urobilinogen,Urine <2.0 mg/dL (<2.0)
[2022-09-22] MEDS: MONTELUKAST 10 MG TAB PO SCH (20:42)
[2022-09-22] MEDS: PREGABALIN 100 MG CAP PO SCH (20:43)
[2022-09-22] MEDS ORDERED: ATORVASTATIN 20 MG TAB PO SCH (21:00)
[2022-09-23] MEDS: LACTATED RINGERS 1,000 ML IV SCH (06:58)
[2022-09-23] MEDS: SYMBICORT 160-4.5 MCG INHALER INHALATION SCH (09:09)
[2022-09-23] MEDS: FAMOTIDINE 20 MG/2 ML VIAL IV SCH (09:17)
[2022-09-23] MEDS: METOPROLOL TARTRATE 25 MG TAB PO SCH (09:30)
[2022-09-23] MEDS: PREGABALIN 100 MG CAP PO SCH (09:30)
[2022-09-23 09:35] VITALS: BP 153/91; PULSE 70; RESP 18; TEMP 97.5
--- NOTE | 2022-09-23 10:21 | P.PN ---
Subjective HISTORY OF PRESENTING ILLNESS This is a pleasant 87-year-old gentleman with a history of hyperlipidemia, asthma and glaucoma as well as questionable dementia. The patient is a poor historian stating his keeps track of his medical history. Has no known history of hypertension or diabetes and no history of coronary artery disease. He does not follow with a manager mission. Presented via EMS after he became dizzy at home. Apparently was having dinner with his family did not complete his meal which she normally does. According to the patient his appetite has been poor over the past week and he's not been eating or drinking much. He became dizzy and family wanted him evaluated in the emergency department was question of paroxysmal atrial fibrillation noted by EMS however patient was not on a monitor at that time. EKG in admission showed sinus mechanism. Vital signs have been stable. He's been afebrile. Chest x-ray showed no acute cardiopulmonary disease/process. Computed tomography scan of the brain showed no acute intracra nial process, nonspecific white matter changes likely secondary to chronic small vessel ischemic disease and remote lacunar injuries of the caudate bilaterally. Upon Review of telemetry appears patient has been mostly in sinus mechanism with frequent episodes of PAT but no clear evidence of atrial fibrillation. He denies further complaints of dizziness. Labs showed sodium 138, potassium 4.1, normal white blood cell count and hemoglobin, normal renal function, troponins negative 3 and normal TSH. He denies any complaints of worsening shortness of breath, orthopnea or PND. Denies any complaint of edema. Denies feeling any palpitations. Denies any chest discomfort. He's had no syncope or near syncope. 09/23 Patient seen and examined. Patient denies any chest pain or pressure. He denies any lightheadedness or dizziness. States he feels better. Remains in sinus rhythm on telemetry. Echo pending. PHYSICAL EXAMINATION Vital signs reviewed. CONSTITUTIONAL: No apparent distress. HEENT: Head is normocephalic. Pupils are equal, round. Sclerae anicteric. Mucous membranes of the mouth are moist. No JVD. No carotid bruit. CHEST EXAMINATION: Lungs are clear to auscultation. No chest wall tenderness is noted on palpation or with deep breathing. HEART EXAMINATION: Regular rate and rhythm. S1, S2 heard. No murmurs, gallops or rub. ABDOMEN: Soft, nontender. Positive bowel sounds. EXTREMITIES: 2+ peripheral pulses, no lower extremity edema and no calf tenderness. NEUROLOGIC EXAMINATION: Patient is awake, alert however poor historian Assessment: #1 symptoms of dizziness and weakness, could be secondary to decreased oral intake over the past week dehydration, improved #2 brief episodes , asymptomatic #3 asthma #4 hyperlipidemia Plan: Appears to be at his baseline and states he feels improved. Await 2-D echo. If unrevealing patient may be discharged home from a cardiology standpoint. Continue low-dose beta manny. Objective - Vital Signs Vital signs: Vital Signs Temp 97.5 F L 09/23/22 08:00 Pulse 70 09/23/22 08:00 Resp 18 09/23/22 08:00 BP 153/91 09/23/22 08:00 Pulse Ox 95 09/23/22 08:00 FiO2 Intake & Output 09/22/22 09/23/22 09/23/22 18:59 06:59 18:59 Intake Total 0 Output Total 170 1400 Balance -170 -1400 0 Intake: Oral 0 Output: Urine 1400 Post Void Residual 170 Other: Voiding Method Toilet # Voids 1 1 - Labs CBC & Chem 7: 09/21/22 18:57 09/22/22 07:25
[2022-09-23] MEDS: HEPARIN SODIUM,PORCINE/PF 5,000 UNIT/0.5 ML SYRINGE SQ SCH (10:29)
--- NOTE | 2022-09-23 10:32 | CA ---
Transthoracic Echo Report Name: Giles Pavon Age: 87 Gender: M : 1935 Exam Date: 09/23/2022 08:51 Exam Location: [facility] Ht (in): 72 Wt (lb): 180 Ordering Physician: Thang Arrieta MD Attending/Referring Phys: [id number], Meenakshi Rotary Rig Engine Operator Katie Quezada, RUST Procedure CPT: Indications: Rule out heart disease Cardiac Hx: Technical Quality: Fair Contrast 1: Total Dose (mL): Contrast 2: Total Dose (mL): MEASUREMENTS (Male / Female) Normal Values 2D ECHO LV Diastolic Diameter PLAX 3.8 cm 4.2 - 5.9 / 3.9 - 5.3 cm LV Systolic Diameter PLAX 2.4 cm IVS Diastolic Thickness 1.4 cm 0.6 - 1.0 / 0.6 - 0.9 cm LVPW Diastolic Thickness 1.4 cm 0.6 - 1.0 / 0.6 - 0.9 cm LV Relative Wall Thickness 0.8 RV Internal Dim ED PLAX 3.1 cm LA Systolic Diameter LX 3.3 cm 3.0 - 4.0 / 2.7 - 3.8 cm LA Volume 67.3 cm??? 18 - 58 / 22 - 52 cm??? M-MODE Aortic Root Diameter MM 3.7 cm MV E Point Septal Separation 0.6 cm AV Cusp Separation MM 1.4 cm DOPPLER AV Peak Velocity 137.9 cm/s AV Peak Gradient 7.6 mmHg MV Area PHT 1.5 cm??? Mitral E Point Velocity 60.5 cm/s Mitral A Point Velocity 101.4 cm/s Mitral E to A Ratio 0.6 MV Deceleration Time 499.3 ms TR Peak Velocity 229.0 cm/s TR Peak Gradient 21.0 mmHg Right Ventricular Systolic Press 25.9 mmHg FINDINGS Left Ventricle Left ventricular ejection fraction is estimated at 55-60 %. Small left ventricular cavity. Moderate concentric left ventricular hypertrophy. Normal left ventricular wall motion. Mildly increased septal wall thickness. Right Ventricle Normal right ventricular size and function. Right ventricular systolic pressure within normal limits. Right Atrium Normal right atrial size. Left Atrium Mildly increased left atrial volume. Mitral Valve Structurally normal mitral valve. Aortic Valve Trileaflet aortic valve. No aortic valve stenosis or regurgitation. Tricuspid Valve Structurally normal tricuspid valve. Mild tricuspid regurgitation. Pulmonic Valve Structurally normal pulmonic valve. Mild pulmonic regurgitation. Pericardium Normal pericardium. No pericardial effusion. Aorta Normal size aortic root and proximal ascending aorta. CONCLUSIONS Technically difficult study for interpretation Normal LV systolic function Previewed by: Dr. Dominguez Crocker MD (Electronically Signed) Final Date: 23 September 2022 10:31
== END 2022-09-23 12:45 | disposition home or self-care (01) ==
LOC: EC 18:42 → 3SCARD 20:43 → INTOOBSV 20:43 → 3SCARD 20:51
PROVIDERS: ADMIT Hospitalist; ATTEND Hospitalist
DX: I48.0 Paroxysmal atrial fibrillation (principal); F03.90 Unspecified dementia, unspecified severity, without behavioral disturbance, psychotic disturbance, mood disturbance, and anxiety; J44.9 Chronic obstructive pulmonary disease, unspecified; I70.0 Atherosclerosis of aorta; E78.5 Hyperlipidemia, unspecified; I44.0 Atrioventricular block, first degree; I67.2 Cerebral atherosclerosis; I07.1 Rheumatic tricuspid insufficiency; I37.1 Nonrheumatic pulmonary valve insufficiency; H40.9 Unspecified glaucoma; Z79.51 Long term (current) use of inhaled steroids; Z79.899 Other long term (current) drug therapy; Z88.0 Allergy status to penicillin; Z63.4 Disappearance and death of family member; Z20.822 Contact with and (suspected) exposure to COVID-19; Z87.891 Personal history of nicotine dependence
CPT/HCPCS: 96376; 96372; 96374; 99285; 36415; 94640 ×3; 93005; 93306; 97161; 97165; 80053; 80048; 84443; 82550; 83605; 83690; 83735 ×2; 84484 ×2; 85025; 81003; 87636; 71046; 70450; G0378 ×3; J1644

== ENCOUNTER 2024-01-01 09:51 | Inpatient (IN) | payer OTHER, MEDICARE ==
[2024-01-01] MEDS ORDERED: LIDOCAINE 1% INJ 10MG/ML (20 ML MDV) ONE (10:00)
[2024-01-01] MEDS ORDERED: fentaNYL (PF) 50 MCG/ML 2 ML AMP ONE (10:00)
[2024-01-01] MEDS ORDERED: VERAPAMIL 2.5 MG/ML 2 ML AMP ONE (10:00)
[2024-01-01] MEDS ORDERED: HEPARIN SODIUM 1,000 UN/ML (10ML VL) ONE (10:00)
[2024-01-01] MEDS: IV FLUID CONTINUATION 900 ML IV ONE (11:10)
[2024-01-01] MEDS: MIDAZOLAM 2 MG/2 ML VIAL IVP ONE (11:10)
[2024-01-01] MEDS: HEPARIN SODIUM 1,000 UN/ML (10ML VL) IV ONE (11:16)
[2024-01-01] MEDS ORDERED: TIROFIBAN 12.5MG-250ML NS 250 ML IV SCH (11:30)
[2024-01-01] MEDS: TIROFIBAN 12.5MG-250ML NS 250 ML IV ONE (11:30)
[2024-01-01] MEDS: IOPAMIDOL-370 100ML BTL INJ ONE ×2 (11:53→12:23)
[2024-01-01] MEDS ORDERED: CLOPIDOGREL 75 MG TAB ONE (12:16)
[2024-01-01] MEDS: CLOPIDOGREL 75 MG TAB PO ONE (12:18)
[2024-01-01] MEDS: NITROGLYCERIN 1000MCG/10ML SYRINGE INTRACORON ONE (12:21)
[2024-01-01] MEDS: HEPARIN SODIUM,PORCINE 10,000 UNIT in SODIUM CHLORIDE 0.9% 1,000 ML IRRIGATION ONE (12:22)
[2024-01-01] MEDS: HEPARIN SODIUM,PORCINE (1 ML) 2,500 UNIT in SODIUM CHLORIDE 0.9% 250 ML IRRIGATION ONE (12:22)
[2024-01-01 13:07] LABS: Glucose,Whole Blood 80 mg/dL (70-110)
[2024-01-01] MEDS: SODIUM CHLORIDE 0.9% 1,000 ML IV SCH ×2 (15:05→19:43)
[2024-01-01] MEDS ORDERED: NITROGLYCERIN OINT 1 INCH/GM PACKET TOPICAL PRN (15:12)
[2024-01-01] MEDS: METOPROLOL TARTRATE 12.5 MG TAB PO SCH (15:37)
[2024-01-01] MEDS: TIROFIBAN 12.5MG-250ML NS 250 ML IV SCH (15:40)
[2024-01-01] MEDS: SYMBICORT 160-4.5 MCG INHALER INHALATION SCH (17:20)
[2024-01-01] MEDS: LORazepam 2 MG/ML INJ IV PRN (17:54)
[2024-01-01] MEDS: HALOPERIDOL LACTATE 5 MG/ML 1 ML VIAL IVP STA ×2 (18:10→19:34)
[2024-01-01] MEDS: PREGABALIN 75 MG CAP PO SCH (19:43)
[2024-01-01] MEDS: LOSARTAN 25 MG TAB PO SCH (19:46)
[2024-01-01] MEDS: MONTELUKAST 10 MG TAB PO SCH (19:46)
[2024-01-01] MEDS: PREGABALIN 50 MG CAP PO SCH (19:46)
[2024-01-01] MEDS: APIXABAN 2.5 MG TABLET PO SCH (19:46)
[2024-01-01] MEDS ORDERED: CALCIUM CARBONATE 500 MG CHEWABLE PO PRN (21:18)
[2024-01-01] MEDS ORDERED: ONDANSETRON 4 MG/2 ML VIAL IVP PRN (21:18)
[2024-01-01] MEDS ORDERED: MELATONIN 3 MG TABLET PO PRN (21:18)
[2024-01-01] MEDS ORDERED: NALOXONE 0.4 MG/ML 1 ML VIAL IV PRN (21:18)
[2024-01-01] MEDS ORDERED: LACTULOSE 20 GM/30 ML CUP PO PRN (21:18)
--- NOTE | 2024-01-01 21:22 | P.HPIM ---
History of Present Illness H&P Date: 01/01/24 Chief Complaint: CAD This is a 88-year-old patient, with Dr. Thapa. Who presented to [facility] on December 30. He presented there with chest pain. EMS reported low blood pressure received IV fluids. Ruled in for acute non-Q wave NE. Chronic stable medical conditions include hard of hearing, moderate to severe cognitive impairment, osteoarthritis, BPH, hyperlipidemia. This morning patient underwent cardiac catheterization found to have a totally occluded RCA and a proximal circumflex lesion of 90%. Patient was transferred here to [facility]. Dr. JEY Chi took the patient to Database Marketing Specialist and 4 stents were placed in the RCA. Patient was Alba started on Aggrastat to get the suspected thrombus in the mid RCA. Also possibly a stent in the proximal circumflex. Patient was seen by me initially in the Extended Stay unit. Later was brought to the ICU. Patient had become agitated and required Haldol. Review of systems: Cannot obtain patient sedated Social history: Retired entry level truck driver. . Alcohol occasionally. Physical examination: VITAL SIGNS: 96, 13, 126 x 72, 96% GENERAL: BMI 21.8, laying in bed, sedated. EYES: Pupils equal. Conjunctiva heather l. HEENT: External appearance of nose and ears normal, oral cavity grossly normal. Hard of hearing NECK: JVD unable to assess; masses not palpable. HEART: First and second heart sounds are normal; no edema. LUNGS: Respiratory rate normal; clear to auscultation. ABDOMEN: Soft, nontender, liver spleen not palpable, no masses palpable. PSYCH: Patient sedated l. MUSCULOSKELETAL:No Clubbing/cyanosis;muscles-grossly intact. OA NEUROLOGICAL: Cranial nerves grossly intact; no facial asymmetry, power and sensation grossly intact. LYMPHATICS: No lymph nodes palpable in the axilla and neck INVESTIGATIONS, reviewed in the clinical context: Lab work from [facility]: 2D echocardiogram EF 55 to 60%. Some LVH. Creatinine 1.13. BUN 17. LDL 118 EKG tracing personally reviewed by me-normal sinus rhythm. Chest x-ray film personally reviewed by me-unremarkable Assessment plan: -Acute non-Q wave NE, 2 days ago when patient presented to [facility] Aspirin. Plavix. Losartan. Lopressor -Coronary artery disease. Patient received 4 stents to the RCA and possibly 1 stent to the proximal circumflex. Aspirin Plavix -Possible med RCA thrombus. 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 Patient received Haldol -BPH Flomax 0.4 mg nightly Patient currently in ICU. Follow-up with cardiology. Past Medical History Past Medical History: Asthma, COPD, Hyperlipidemia, Prostate Disorder Additional Past Medical History / Comment(s): shingles L groin/L hip/buttock in past and has post herpetic neuralgia, glaucoma. History of Any Multi-Drug Resistant Organisms: None Reported Past Surgical History: Hernia Repair Additional Past Surgical History / Comment(s): colonoscopy, hemorrhoidectomy, arm surgery after injury (cannot recall laterality). Past Anesthesia/Blood Transfusion Reactions: No Reported Reaction Past Psychological History: No Psychological Hx Reported Additional Psychological History / Comment(s): Pt resides with his spouse. He is an [employer] who served over in [employer]. He is independent. Smoking Status: Former smoker Past Alcohol Use History: Rare Additional Past Alcohol Use History / Comment(s): Pt started smoking in 1954 and quit in 1976 Past Drug Use History: None Reported - Past Family History Father History Unknown: Yes Additional Family Medical History / Comment(s): Father in WWII, when pt was young. Mother History Unknown: Yes Additional Family Medical History / Comment(s): Mother left when pt was 5 yrs old. Pt was raised by his grandmother. Medications and Allergies Home Medications Medication Instructions Recorded Confirmed Type Albuterol Inhaler [Ventolin Hfa 1 - 2 puff INHALATION RT-Q6H PRN 04/25/17 01/01/24 History Inhaler] Latanoprost [Latanoprost 0.005%] 1 drop BOTH EYES HS 01/01/24 01/01/24 History Pregabalin [Lyrica] 75 mg PO BID 01/01/24 01/01/24 History Timolol 0.5% Ophth Soln [Timoptic 1 drop BOTH EYES DAILY 01/01/24 01/01/24 History 0.5% Ophth Soln] Allergies Allergy/AdvReac Type Severity Reaction Status Date / Time ciprofloxacin [From Cipro] Allergy Unknown Verified 01/01/24 14:08 Penicillins Allergy Unknown Verified 01/01/24 14:08 Childhood Physical Exam Vitals: Vital Signs Temp Pulse Resp BP Pulse Ox 01/01/24 19:00 92 23 119/71 96 01/01/24 18:00 96 13 126/72 96 01/01/24 17:00 76 16 125/73 97 01/01/24 16:00 97.8 F 80 21 125/75 94 L 01/01/24 15:00 83 12 123/74 95 01/01/24 14:00 84 21 140/73 96 01/01/24 13:10 97.1 F L 86 14 140/73 96 Intake and Output 01/01/24 01/01/24 01/01/24 06:59 14:59 22:59 Intake Total 350 575 Output Total 120 335 Balance 230 240 Intake: IV 350 375 Sodium Chloride 0.9% 1, 75 375 000 ml @ 75 mls/hr IV . [id number] [facility] Rx#:[id number] Oral 200 Output: Urine 120 335 Other: Voiding Method Indwelling Catheter # Bowel Movements 1 Weight 77 kg Thrombosis Risk Factor Assmnt - Choose All That Apply Any of the Below Risk Factors Present?: Yes Each Factor Represents 1 point: Acute NE Each Risk Factor Represents 3 Points: Age 75 years or older Other congenital or acquired thrombophilia - If yes, enter type in comment: No Thrombosis Risk Factor Assessment Total Risk Factor Score: 4 Thrombosis Risk Factor Assessment Level: Moderate Risk
[2024-01-01] MEDS: ATORVASTATIN 80 MG TAB PO SCH (21:26)
--- NOTE | 2024-01-01 21:54 | CC ---
CARDIAC CATHETERIZATION REPORT PROCEDURES: 1. Percutaneous transluminal coronary angioplasty and stenting of totally occluded proximal/mid right coronary artery with drug-eluting stents. 2. Intravascular ultrasound of right coronary artery post procedure. 3. Percutaneous transluminal coronary angioplasty and stenting of proximal nondominant circumflex coronary artery with a drug-eluting stent. 4. Intravascular ultrasound of circumflex coronary artery post procedure. PERFORMED BY: Dr. Golden Chi. ANESTHESIA: Moderate conscious sedation time was 71 minutes. The patient was administered Versed. Oxygen saturation, hemodynamics, and EKG were monitored closely. The patient's ACT was 209 and initial ACT was 280. Received heparin intravenously and also Aggrastat bolus and drip was started. The patient will be on aspirin and Plavix without interruption for 1 year. He is already on atorvastatin 40 mg daily, which will be continued with an LDL goal of under 70. CLINICAL INFORMATION: Mr. Giles Pavon is an 88-year-old gentleman, who was admitted because of chest pain to [facility] yesterday with complaints of chest tightness and pressure. The patient's family including and son and [id number] brought him to the hospital. His troponin was already elevated, was showing somewhat of a downward trend with a subacute MS. Echo revealed preserved systolic function and the patient again had chest pain this morning without EKG changes of significance, but because of his presentation of ongoing chest pain, even though it may have been a subacute non ST elevation MS. I recommended cardiac catheterization, which was performed at [facility], which revealed total occlusion of the proximal/mid RCA which was a dominant vessel and 80% to 90% stenosis of a nondominant circumflex. LAD did not have significant disease. He was transferred from [facility] to [facility] with a right radial sheath sutured in and on heparin drip. PROCEDURE NOTE: The existing 6-Dutch introducer was used to perform the procedure. I used a JR4 6- Dutch guide catheter to cannulate the right coronary artery. Using a combination of a 2.5 caliber NC Trek balloon and a short run-through wire, I crossed the total occlusion. Wire was kept distally. Multiple inflations were given with a 2.5 NC Trek balloon. I then dilated with a 3.5 caliber NC Trek balloon throughout the total occlusion area. Area was diffusely diseased. In the PLV also there was a subtotal occlusion. I used a 2.25 caliber 15 mm long NC Trek balloon to dilate the PLV branch. I then deployed a 28 mm long 3.25 caliber Xience stent in the mid/distal portion of the RCA and proximal to it, I had an 18 mm long 3.5 caliber stent and proximal to it was another 12 mm long 3.5 caliber Xience stent of 12 mm length. The entire stented area was then post dilated with a 4.0 caliber NC Trek balloon. I then performed intravascular ultrasound, which revealed full expansion of the stent and the diameter was comparable to the normal vessel. There was full stent expansion and excellent apposition of the stents were noted. I then turned my attention to circumflex coronary artery. I initially tried a JL 3.5, switched over to a JL 4.0 guide catheter and a run- through wire. The wire was kept distally. 2.5 caliber 12 mm NC Trek balloon was used to pre-dilate the lesion and a 2.75 caliber 12 mm long Xience stent was deployed at 14 atmospheres. The patient had excellent angiographic result. Intravascular ultrasound revealed full stent expansion, good apposition, and the diameter of the stented area was comparable to the normal vessel proximally. Excellent angiographic result was achieved. The sheath was taken out and TR band applied as per protocol. Saturation of the fingers of the right hand of 94%. The details of the procedure and results were discussed with the patient as well as his family members and he was sent to the [facility] in a stable condition. MMODL / IJN: [id number] /
[2024-01-02 01:28] LABS: African American GFR (CKD) >90 (>60 ml/min/1.73 sqM); Anion Gap 7 mmol/L; Blood Urea Nitrogen 19 mg/dL (9-20); Carbon Dioxide 16 mmol/L (22-30); Chloride 112 mmol/L (98-107); Glucose 77 mg/dL (74-99); Magnesium 1.8 mg/dL (1.6-2.3); Non-African American GFR(CKD) 83 (>60 ml/min/1.73 sqM); Potassium 3.7 mmol/L (3.5-5.1); Sodium 135 mmol/L (137-145)
[2024-01-02] MEDS ORDERED: Potassium Replacement Protocol 1 EACH MISC MISCELLANE PRN (02:32)
[2024-01-02] MEDS: POTASSIUM CHLORIDE 10 MEQ in WATER FOR INJECTION 1 100ML.BAG IVPB SCH (03:07)
[2024-01-02 06:13] LABS: Basophils % (A) 0 %; Eosinophils # (A) 0.1 k/uL (0-0.7); Eosinophils % (A) 1 %; HCT 29.8 % (39.0-53.0); HGB 10.4 gm/dL (13.0-17.5); Lymphocytes # (A) 1.4 k/uL (1.0-4.8); Lymphocytes % (A) 16 %; MCH 33.2 pg (25.0-35.0); MCHC 34.8 g/dL (31.0-37.0); MCV 95.3 fL (80.0-100.0); Mean Platelet Volume 8.6; Monocytes # (A) 0.8 k/uL (0-1.0); Monocytes % (A) 8 %; Neutrophils # (A) 6.7 k/uL (1.3-7.7); Neutrophils % (A) 74 %; Platelet Count 190 k/uL (150-450); RBC 3.13 m/uL (4.30-5.90); RDW 13.8 % (11.5-15.5); WBC 9.1 k/uL (3.8-10.6)
[2024-01-02 06:29] LABS: African American GFR (CKD) >90 (>60 ml/min/1.73 sqM); Anion Gap 6 mmol/L; Blood Urea Nitrogen 18 mg/dL (9-20); Calcium 9.2 mg/dL (8.4-10.2); Carbon Dioxide 18 mmol/L (22-30); Chloride 113 mmol/L (98-107); Glucose 85 mg/dL (74-99); Non-African American GFR(CKD) 80 (>60 ml/min/1.73 sqM); Potassium 3.8 mmol/L (3.5-5.1); Sodium 137 mmol/L (137-145)
[2024-01-02] MEDS: ASPIRIN 81 MG PO SCH (09:09)
[2024-01-02] MEDS: CLOPIDOGREL 75 MG TAB PO SCH (09:09)
[2024-01-02] MEDS: HALOPERIDOL LACTATE 5 MG/ML 1 ML VIAL IVP PRN (09:11)
[2024-01-02] MEDS: ACETAMINOPHEN TAB 325 MG TAB PO PRN (09:11)
[2024-01-02] MEDS: DOPamine DRIP 800 MG in DEXTROSE/WATER 1 250ML.BAG IV SCH (11:01)
[2024-01-02 12:38] VITALS: BMI 22.8
--- NOTE | 2024-01-02 13:23 | CA ---
Transthoracic Echo Report Name: Giles Pavon Age: 88 Gender: M : 1935 Exam Date: 01/02/2024 07:48 Exam Location: [facility] Ht (in): 74 Wt (lb): 177 Ordering Physician: Chico Chi MD ([id number]) Attending/Referring Phys: Ore Puncher Valeri Guerrero RDCS Procedure CPT: Indications: heart cath Cardiac Hx: Technical Quality: Poor, Technically difficult study, pt uncooperative Contrast 1: Definity Total Dose (mL): 2 Contrast 2: Total Dose (mL): MEASUREMENTS (Male / Female) Normal Values 2D ECHO LV Diastolic Diameter PLAX 4.9 cm 4.2 - 5.9 / 3.9 - 5.3 cm LV Systolic Diameter PLAX 2.8 cm IVS Diastolic Thickness 1.4 cm 0.6 - 1.0 / 0.6 - 0.9 cm LVPW Diastolic Thickness 1.8 cm 0.6 - 1.0 / 0.6 - 0.9 cm LV Relative Wall Thickness 0.6 RV Internal Dim ED PLAX 3.7 cm LVOT Diameter 2.1 cm LA Systolic Diameter LX 5.3 cm 3.0 - 4.0 / 2.7 - 3.8 cm M-MODE Aortic Root Diameter MM 3.7 cm LA Systolic Diameter MM 4.7 cm LA Ao Ratio MM 1.3 AV Cusp Separation MM 1.5 cm DOPPLER AV Peak Velocity 186.9 cm/s AV Peak Gradient 14.0 mmHg AV Mean Velocity 153.2 cm/s AV Mean Gradient 9.8 mmHg AV Velocity Time Integral 38.2 cm LVOT Peak Velocity 103.0 cm/s LVOT Peak Gradient 4.2 mmHg LVOT Velocity Time Integral 20.4 cm LVOT Stroke Volume 68.7 cm??? LVOT Stroke Volume Index 33.3 ml/m??? LVOT Cardiac Index 2923.6 cm???/min???m??? AV Area Cont Eq vti 1.8 cm??? AV Area Cont Eq pk 1.9 cm??? Mitral E Point Velocity 70.0 cm/s Mitral A Point Velocity 86.0 cm/s Mitral E to A Ratio 0.8 MV Deceleration Time 210.5 ms MV E' Velocity 5.4 cm/s Mitral E to MV E' Ratio 12.8 TR Peak Velocity 215.6 cm/s TR Peak Gradient 18.6 mmHg Right Ventricular Systolic Press 28.7 mmHg FINDINGS Left Ventricle Left ventricular ejection fraction is estimated at 55-60%. Moderately increased septal wall thickness. No obvious regional wall motion abnormalities. Left ventricular cavity size normal. Right Ventricle Mild right ventricular dilatation. Right ventricular systolic pressure within normal limits. Right Atrium Moderate right atrial dilatation. Left Atrium Severely increased left atrial diameter. Mitral Valve Mitral valve thickened. Mild mitral regurgitation. No mitral stenosis. Aortic Valve Trileaflet aortic valve. Diffuse thickening (sclerosis) of the aortic valve cusps without reduced excursion. No aortic regurgitation. Tricuspid Valve Structurally normal tricuspid valve. Mild tricuspid regurgitation. Pulmonic Valve Structurally normal pulmonic valve. Trace pulmonic regurgitation. Pericardium Small pericardial effusion. Aorta Aorta at upper limits of normal. CONCLUSIONS LVH with preserved systolic function Mild RV enlargement Biatrial enlargement Aortic sclerosis Previewed by: Dr. Maik Joya MD (Electronically Signed) Final Date: 02 January 2024 13:22
[2024-01-02] MEDS ORDERED: QUEtiapine 25 MG TAB PO PRN (14:04)
--- NOTE | 2024-01-02 14:12 | P.CN ---
Psychiatric Consult - . Consult date: 01/02/24 Consult:: 01/02/24 13:11 IDENTIFYING DATA: This patient is a 88-year-old male, currently lives with his in a mobile home, he has 1 son, he collects a pension REASON FOR REFERRAL: Psychiatry was consulted for mental status changes HISTORY OF PRESENT ILLNESS: The patient presented to the hospital initially on 12/31, transferred from [facility], patient was having chest pain hypotension, found to have a SC. He was transferred to [facility] as he was in need of stents during cardiac catheterization. Patient had 4 stents put in. Patient apparently has a history of dementia, he is hard of hearing, he received as needed Haldol and also Ativan for agitation. Primer Waterproofing Machine Operator spoke briefly with patient's nurse who stated that patient just received Ativan and was sleeping. Patient's provided most of the history, states that patient was agitated and has been confused, also states that he has had dementia for about a year now. She claims that his sleep has been on and off, she asked several questions about medications and his condition which were answered. She also provided further psychiatric and family and social history. Primer Waterproofing Machine Operator attempted to interact with patient and patient was not able to answer any questions, he was sound asleep and not following any directions, he had a one-to-one sitter. Patient's claims that he does not use any recreational drugs or cigarettes. PAST PSYCHIATRIC HISTORY: Patient has a a history of dementia. Patient is not on any psychiatric medications, does not have any significant psychiatric history. Past Medical History Past Medical History: Asthma, COPD, Hyperlipidemia, Prostate Disorder Additional Past Medical History / Comment(s): shingles L groin/L hip/buttock in past and has post herpetic neuralgia, glaucoma. History of Any Multi-Drug Resistant Organisms: None Reported Past Surgical History: Hernia Repair Additional Past Surgical History / Comment(s): colonoscopy, hemorrhoidectomy, arm surgery after injury (cannot recall laterality). Past Anesthesia/Blood Transfusion Reactions: No Reported Reaction Past Psychological History: No Psychological Hx Reported Additional Psychological History / Comment(s): Pt resides with his spouse. He is an [employer] who served over in [place]. He is independent. Smoking Status: Former smoker Past Alcohol Use History: Rare Additional Past Alcohol Use History / Comment(s): Pt started smoking in 1953 and quit in 1976 Past Drug Use History: None Reported ALLERGIES: as per EMR. CHEMICAL DEPENDENCY HISTORY: as per HPI. FAMILY PSYCHIATRIC/SUBSTANCE USE HISTORY: claims that patient's aunt also had dementia SOCIAL HISTORY: Patient was born and raised in [facility], claims that he finished up to the 10th grade in school then joined the [employer]. She states that he served 3 years in the 50s. Denies any legal history. 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 MENTAL STATUS EXAM: General Appearance: Patient appears to be thin, sleeping, fair grooming wearing hospital gown with poor eye contact. Behavior: Laying in bed, no agitation, fairly somnolent Speech: P unable to assess Mood/Affect: Unable to assess Suicidality/Homicidality: Unable to assess Perceptions: Unable to assess Though content/process: Unable to assess Memory and concentration: Unable to assess Judgment and insight: Poor IMPRESSIONS: Delirium, likely multiple etiologies including medications, toxic metabolic etc History of major neurocognitive disorder PLAN: -At this time patient DOES NOT meet criteria for inpatient psychiatric admission. -Delirium precautions recommended with patient including - avoiding use of narcotics and SIGN BOARD ERECTOR sedatives, limit anticholinergic medications when possible, frequent re-orientation, minimize use of restraints, open window shades during the day and close them at night -Would recommend the following medication changes/additions: Change melatonin 5 mg nightly for sleep, Seroquel 12.5 mg twice daily as needed for agitation, continue with Haldol as needed for agitation. Discontinued Ativan as this will further precipitate and worsen patient's delirium/confusion -Continue with medical management of underlying medical conditions -Communicated plan to patient's nurse -Will continue to follow along only if needed/requested otherwise will sign off. -Please contact with any questions. 01/02/24 14:05
--- NOTE | 2024-01-02 15:36 | P.PN ---
Subjective Progress Note Date: 01/02/24 This is a 88-year-old patient, with Dr. Thapa. Who presented to [facility] on December 30. He presented there with chest pain. EMS reported low blood pressure received IV fluids. Ruled in for acute non-Q wave [place]. Chronic stable medical conditions include hard of hearing, moderate to severe cognitive impairment, osteoarthritis, BPH, hyperlipidemia. This morning patient underwent cardiac catheterization found to have a totally occluded RCA and a proximal circumflex lesion of 90%. Patient was transferred here to [facility]. Dr. JEY Chi took the patient to [facility] and 4 stents were placed in the RCA. Patient was [place] started on Aggrastat to get the suspected thrombus in the mid RCA. Also possibly a stent in the proximal circumflex. Patient was seen by me initially in the Extended Stay unit. Later was brought to the ICU. Patient had become agitated and required Haldol. 01/02/2024 Patient is evaluated today in follow-up in the ICU. Patient had acute agitation overnight and was uncooperative with taking the Seroquel. For this reason he was given Haldol and Ativan which can in fact make his agitation worse. Patient is postcardiac catheterization with multiple stents to the RCA continues on aspirin Plavix and Eliquis. Family has made this patient a DNR. He is having intermittent episodes of bradycardia down into the 30s and has been started on dopamine infusion at 2.5 mcg. Cardiac catheterization reveals an ejection fraction of 55 to 60% with mild right ventricular enlargement, biatrial enlargement and aortic sclerosis. Blood work today reveals a white blood cell count of 9.1, hemoglobin 10.4, sodium level of 137, BUN of 18, creatinine of 0.81. Unable to complete a review of systems at this time as patient is currently sedated in the intensive care unit. PHYSICAL EXAMINATION: GENERAL: The patient is alert and oriented x1-0, not in any acute distress. Well developed, well nourished. Pale, Sedated HEENT: Pupils are round and equally reacting to light. EOMI. No scleral icterus. No conjunctival pallor. Normocephalic, atraumatic. No pharyngeal erythema. No thyromegaly. CARDIOVASCULAR: S1 and S2 present. No murmurs, rubs, or gallops. PULMONARY: Chest is clear to auscultation, no wheezing or crackles. ABDOMEN: Soft, nontender, nondistended, normoactive bowel sounds. No palpable organomegaly. MUSCULOSKELETAL: No joint swelling or deformity. EXTREMITIES: No cyanosis, clubbing, or pedal edema. NEUROLOGICAL: Gross neurological examination did not reveal any focal deficits. SKIN: No rashes. Assessment and Plan -Acute non-Q wave [place], 2 days ago when patient presented to [facility] -Coronary artery disease. Patient received 4 stents to the RCA and possibly 1 stent to the proximal circumflex. -Sinus bradycardia post cath -Possible mid RCA thrombus. 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 -Primary osteoarthritis -Hyperlipidemia -Acute episode of confusion/delirium/agitated behavior multifactorial likely because of the underlying dementia and exacerbated by hospitalization -BPH on flomax GI prophylaxis DVT prophylaxis Do Not Resuscitate Do Not Intubate Plan Patient currently in ICU Patient has been started on dopamine infusion secondary to the significant bradycardia Continue cardiac telemetry Cardiology following closely Continues on aspirin and plavix therapy Continue normal saline Repeat blood work in the AM Seroquel PRN recommended if patient will tolerate try to avoid haldol or ativan if possible. PT/OT will be consulted. The impression and plan of care has been dictated by Debi Craig, Nurse Practitioner as directed. Dr. Makenna MD I have performed a history and physical examination and medical decision making of this patient, discussed the same with the dictator, and agree with the dictators assessment and plan as written, documented as a scribe. Based on total visit time, I have performed more than 50% of this visit. Objective - Vital Signs Vital signs: Vital Signs Temp 98.1 F 01/02/24 08:00 Pulse 93 01/02/24 09:00 Resp 20 01/02/24 09:00 BP 102/61 01/02/24 09:00 Pulse Ox 100 01/02/24 08:00 FiO2 Intake & Output 01/01/24 01/02/24 01/02/24 18:59 06:59 18:59 Intake Total 925 750 Output Total 455 465 100 Balance 470 285 -100 Weight 77 kg 80.6 kg Intake: IV 725 750 Sodium Chloride 0.9% 1, 450 750 000 ml @ 75 mls/hr IV . [id number] Rx#:[id number] Oral 200 Output: Urine 455 465 100 Other: Voiding Method Indwelling Catheter Indwelling Catheter # Bowel Movements 1 - Labs CBC & Chem 7: 01/02/24 05:31 01/02/24 05:31 Labs: Abnormal Lab Results - Last 24 Hours (Table) 01/02/24 01/02/24 01/02/24 Range/Units 00:21 05:31 05:31 RBC 3.13 L (4.30-5.90) m/uL Hgb 10.4 L (13.0-17.5) gm/dL Hct 29.8 L (39.0-53.0) % Sodium 135 L (137-145) mmol/L Chloride 112 H 113 H (98-107) mmol/L Carbon Dioxide 16 L 18 L (22-30) mmol/L Assessment and Plan Time with Patient: Greater than 30
[2024-01-02] MEDS: TAMSULOSIN 0.4 MG CAP.ER.24H PO SCH (18:51)
[2024-01-02] MEDS: AMIODARONE 200 MG TAB PO SCH (18:52)
[2024-01-02] MEDS: ATROPINE SULFATE 0.1 MG/ML 10ML SYRINGE ONE (19:05)
[2024-01-02] MEDS: QUEtiapine 25 MG TAB PO SCH (20:49)
[2024-01-02] MEDS: MELATONIN 5 MG TABLET PO SCH (20:50)
--- NOTE | 2024-01-02 21:27 | P.CRDCN ---
History of Present Illness Consult date: 01/02/24 History of present illness: HISTORY OF PRESENTING ILLNESS 88-year-old who initially presented to [facility] on December 30. For NSTEMI underwent a cardiac catheterization which showed totally occluded RCA and 90% circumflex disease. For this he got 4 stents to RCA and PCI of LCx. Due to significant clot burden, he also received Aggrastat. He has been managed in ICU. During his ICU st stay he has been having pauses. For this his beta-manny was stopped. On careful review of his ECG and telemetry it appears that patient is in paroxysmal atrial fibrillation and he is having frequent conversion pauses. REVIEW OF SYSTEMS Patient is delirious and not able to give me review of system PHYSICAL EXAMINATION Vital signs reviewed. Head: Normocephalic. Eyes: Sclerae nonicteric. Neck: Brisk carotid upstroke, no jugular venous distention. Lungs: Poor respiratory effort, diminished breath sounds, mild rhonchi audible. Heart: Irregularly irregular pulse, mild systolic murmur audible Abdomen: Soft nontender, positive bowel sounds. Extremities: No edema, intact distal pulses. Neuro: Detailed neuro exam was not performed. ASSESSMENT CAD with NSTEMI s/p PCI to RCA and LCx Paroxysmal atrial fibrillation Pauses with bradycardia, likely due to conversion pauses from atrial fibrillation Delirium Dementia Echo shows EF 55%, moderate LVH, mild RV dilatation, biatrial dilatation, aortic sclerosis but no stenosis, mild MR PLAN Stop all AV yefri blocking agents. Consider achieving rhythm control to avoid these conversion pauses. Start amiodarone 400 mg twice daily. If patient cannot tolerate p.o. medication, start amiodarone drip Apparently patient is not able to tolerate p.o. medication due to confusion. He is not maintaining NG tube and is pulling it out. Plavix is on hold. Start IV heparin Aspirin suppository Gene Galvan MD, FACC, RPVI Thank you for allowing [facility] to participate in this patient's care. Feel free to reach out in case of any followup questions. Past Medical History Past Medical History: Asthma, COPD, Hyperlipidemia, Prostate Disorder Additional Past Medical History / Comment(s): shingles L groin/L hip/buttock in past and has post herpetic neuralgia, glaucoma. History of Any Multi-Drug Resistant Organisms: None Reported Past Surgical History: Hernia Repair Additional Past Surgical History / Comment(s): colonoscopy, hemorrhoidectomy, arm surgery after injury (cannot recall laterality). Past Anesthesia/Blood Transfusion Reactions: No Reported Reaction Past Psychological History: No Psychological Hx Reported Additional Psychological History / Comment(s): Pt resides with his spouse. He is an [employer] who served over in [employer]. He is independent. Smoking Status: Former smoker Past Alcohol Use History: Rare Additional Past Alcohol Use History / Comment(s): Pt started smoking in 1953 and quit in 1976 Past Drug Use History: None Reported - Past Family History Father History Unknown: Yes Additional Family Medical History / Comment(s): Father in WWII, when pt was young. Mother History Unknown: Yes Additional Family Medical History / Comment(s): Mother left when pt was 5 yrs old. Pt was raised by his grandmother. Medications and Allergies Home Medications Medication Instructions Recorded Confirmed Type Albuterol Inhaler [Ventolin Hfa 1 - 2 puff INHALATION RT-Q6H PRN 04/25/17 01/01/24 History Inhaler] Latanoprost [Latanoprost 0.005%] 1 drop BOTH EYES HS 01/01/24 01/01/24 History Pregabalin [Lyrica] 75 mg PO BID 01/01/24 01/01/24 History Timolol 0.5% Ophth Soln [Timoptic 1 drop BOTH EYES DAILY 01/01/24 01/01/24 History 0.5% Ophth Soln] Allergies Allergy/AdvReac Type Severity Reaction Status Date / Time ciprofloxacin [From Cipro] Allergy Unknown Verified 01/01/24 14:08 Penicillins Allergy Unknown Verified 01/01/24 14:08 Childhood Physical Exam Vitals: Vital Signs Temp Pulse Resp BP Pulse Ox 01/02/24 19:00 96 21 121/70 01/02/24 18:30 98 29 H 119/72 01/02/24 18:00 105 H 24 94/64 01/02/24 17:30 86 21 110/63 01/02/24 17:00 92 20 115/74 01/02/24 16:30 88 21 105/59 01/02/24 16:00 98.4 F 85 21 101/67 98 01/02/24 15:30 95 22 104/70 01/02/24 15:00 114 H 19 93/66 01/02/24 14:30 88 16 103/80 01/02/24 14:00 98 12 120/70 01/02/24 13:30 78 24 107/69 01/02/24 13:00 87 23 101/58 01/02/24 12:30 68 21 98/57 01/02/24 12:00 97.8 F 81 22 100/57 98 01/02/24 11:30 90 29 H 114/52 01/02/24 11:00 44 L 22 109/71 01/02/24 10:30 97 21 117/90 01/02/24 10:00 85 19 106/57 91 L 01/02/24 09:00 93 20 102/61 01/02/24 08:00 98.1 F 86 11 L 112/69 100 01/02/24 07:00 92 31 H 90/70 01/02/24 06:00 82 18 117/78 99 01/02/24 05:00 93 21 98 01/02/24 04:00 112 H 20 107/74 01/02/24 03:00 91 13 107/55 97 01/02/24 02:00 86 33 H 108/65 97 01/02/24 01:00 84 17 90/64 98 01/02/24 00:00 97.9 F 76 17 102/70 99 01/01/24 23:00 79 18 106/65 98 01/01/24 22:00 77 18 101/63 99 Intake and Output 01/02/24 01/02/24 01/02/24 06:59 14:59 22:59 Intake Total 525 375 525 Output Total 325 435 760 Balance 200 -60 -235 Intake: IV 525 375 525 Sodium Chloride 0.9% 1, 525 375 525 000 ml @ 75 mls/hr IV . [id number] [facility] Rx#:[id number] Output: Urine 325 435 760 Other: Voiding Method Indwelling Catheter Indwelling Catheter Indwelling Catheter Weight 80.6 kg 80.6 kg Results 01/02/24 05:31 01/02/24 05:31 CBC 01/02/24 Range/Units 05:31 WBC 9.1 (3.8-10.6) k/uL RBC 3.13 L (4.30-5.90) m/uL Hgb 10.4 L (13.0-17.5) gm/dL Hct 29.8 L (39.0-53.0) % Plt Count 190 (150-450) k/uL Comprehensive Metabolic Panel 01/02/24 01/02/24 Range/Units 00:21 05:31 Sodium 135 L 137 (137-145) mmol/L Potassium 3.7 3.8 (3.5-5.1) mmol/L Chloride 112 H 113 H (98-107) mmol/L Carbon Dioxide 16 L 18 L (22-30) mmol/L BUN 19 18 (9-20) mg/dL Creatinine 0.75 0.81 (0.66-1.25) mg/dL Glucose 77 85 (74-99) mg/dL Calcium 9.0 9.2 (8.4-10.2) mg/dL Current Medications Generic Name Dose Route Start Last Admin Trade Name Freq PRN Reason Stop Dose Admin Acetaminophen 650 mg 01/01/24 21:18 Acetaminophen Tab 325 Mg Tab PO Q6HR PRN Mild Pain or Fever > 100.5 Amiodarone HCl 400 mg 01/02/24 21:00 01/02/24 18:52 Amiodarone 200 Mg Tab PO 400 mg BID STACEY Administration Apixaban 2.5 mg 01/01/24 21:00 01/02/24 18:51 Apixaban 2.5 Mg Tablet PO 2.5 mg BID STACEY Administration Protocol Aspirin 81 mg 01/02/24 09:00 01/02/24 09:45 Aspirin 81 Mg PO Not Given DAILY STACEY Atorvastatin Calcium 80 mg 01/01/24 21:30 01/02/24 20:50 Atorvastatin 80 Mg Tab PO 80 mg HS STACEY Administration Budesonide/Formoterol Fumarate 2 puff 01/01/24 12:48 01/02/24 20:05 Symbicort 160-4.5 Mcg Inhaler INHALATION Not Given RT-BID STACEY Calcium Carbonate/Glycine 1,000 mg 01/01/24 21:18 Calcium Carbonate 500 Mg Chewable PO Q4HR PRN Dyspepsia Clopidogrel Bisulfate 75 mg 01/02/24 09:00 01/02/24 09:47 Clopidogrel 75 Mg Tab PO Not Given DAILY [facility] Haloperidol Lactate 2.5 mg 01/02/24 08:57 01/02/24 09:11 Haloperidol Lactate 5 Mg/Ml 1 Ml Vial IVP 2.5 mg Q8HR PRN Administration Agitation or Acute Psychosis Sodium Chloride 1,000 mls @ 75 mls/hr 01/01/24 13:45 01/02/24 16:25 Saline 0.9% IV 75 mls/hr .[id number] STACEY Administration Dopamine HCl/Dextrose 800 mg/ 250 mls @ 3.778 mls/hr 01/02/24 11:00 01/02/24 11:01 IV Solution IV 2.5 mcg/kg/min .Q24H STACEY 3.778 mls/hr Administration Protocol 2.5 MCG/KG/MIN Lactulose 20 gm 01/01/24 21:18 Lactulose 20 Gm/30 Ml Cup PO DAILY PRN Constipation Losartan Potassium 25 mg 01/01/24 21:00 01/02/24 20:50 Losartan 25 Mg Tab PO 25 mg HS STACEY Administration Melatonin 5 mg 01/02/24 21:00 01/02/24 20:50 Melatonin 5 Mg Tablet PO 5 mg HS STACEY Administration Miscellaneous Information 1 each 01/02/24 02:32 Potassium Replacement Protocol 1 Each Misc MISCELLANE DAILY PRN Per Protocol Protocol Montelukast Sodium 10 mg 01/01/24 21:00 01/02/24 20:50 Montelukast 10 Mg Tab PO 10 mg HS STACEY Administration Naloxone HCl 0.2 mg 01/01/24 21:18 Naloxone 0.4 Mg/Ml 1 Ml Vial IV Q2M PRN Opioid Reversal Nitroglycerin 1 inch 01/01/24 15:12 Nitroglycerin Oint 1 Inch/Gm Packet TOPICAL Q6HR PRN Chest Pain Ondansetron HCl 4 mg 01/01/24 21:18 Ondansetron 4 Mg/2 Ml Vial IVP Q8HR PRN Nausea And Vomiting Pregabalin 50 mg 01/01/24 21:00 01/02/24 20:50 Pregabalin 50 Mg Cap PO 50 mg BID STACEY Administration Quetiapine Fumarate 12.5 mg 01/02/24 21:00 01/02/24 20:49 Quetiapine 25 Mg Tab PO 12.5 mg HS STACEY Administration Tamsulosin HCl 0.4 mg 01/02/24 18:30 01/02/24 18:51 Tamsulosin 0.4 Mg Cap.Er.24h PO Not Given PC-SUPPER STACEY Intake and Output 01/02/24 01/02/24 01/02/24 06:59 14:59 22:59 Intake Total 525 375 525 Output Total 325 435 760 Balance 200 -60 -235 Intake: IV 525 375 525 Sodium Chloride 0.9% 1, 525 375 525 000 ml @ 75 mls/hr IV . [id number] [facility] Rx#:[id number] Output: Urine 325 435 760 Other: Voiding Method Indwelling Catheter Indwelling Catheter Indwelling Catheter Weight 80.6 kg 80.6 kg Patient Weight 01/03/24 06:59 Weight 80.6 kg 01/02/24 05:31 01/02/24 05:31
[2024-01-03 00:10] LABS: Glucose,Whole Blood 90 mg/dL (70-110)
[2024-01-03 06:33] LABS: Glucose,Whole Blood 89 mg/dL (70-110)
[2024-01-03 06:35] LABS: Basophils % (A) 0 %; Eosinophils # (A) 0.2 k/uL (0-0.7); Eosinophils % (A) 2 %; HCT 32.3 % (39.0-53.0); HGB 10.3 gm/dL (13.0-17.5); Lymphocytes % (A) 14 %; MCH 30.4 pg (25.0-35.0); Mean Platelet Volume 8.4; Monocytes # (A) 0.6 k/uL (0-1.0); Monocytes % (A) 8 %; Neutrophils # (A) 5.8 k/uL (1.3-7.7); Neutrophils % (A) 76 %; Platelet Count 245 k/uL (150-450); RDW 13.7 % (11.5-15.5); WBC 7.7 k/uL (3.8-10.6)
[2024-01-03 06:55] LABS: African American GFR (CKD) >90 (>60 ml/min/1.73 sqM); Blood Urea Nitrogen 14 mg/dL (9-20); Calcium 9.2 mg/dL (8.4-10.2); Carbon Dioxide 15 mmol/L (22-30); Chloride 111 mmol/L (98-107); Glucose 83 mg/dL (74-99); Magnesium 1.7 mg/dL (1.6-2.3); Non-African American GFR(CKD) 86 (>60 ml/min/1.73 sqM); Potassium 3.5 mmol/L (3.5-5.1)
[2024-01-03 07:16] LABS: Anion Gap 10 mmol/L; Sodium 136 mmol/L (137-145)
[2024-01-03] MEDS ORDERED: Magnesium Replacement Protocol 1 EACH MISC MISCELLANE PRN (07:59)
[2024-01-03] MEDS: POTASSIUM BICARBONATE/CIT AC 20 MEQ TABLET.EFF NG-TUBE SCH (08:50)
[2024-01-03] MEDS: MAGNESIUM SULFATE-D5W PMX 1 GM in DEXTROSE/WATER 1 100ML.BAG IVPB ONE (08:50)
--- NOTE | 2024-01-03 15:05 | P.PN ---
Subjective Progress Note Date: 01/03/24 This is a 88-year-old patient, with Dr. Thapa. Who presented to [facility] on December 30. He presented there with chest pain. EMS reported low blood pressure received IV fluids. Ruled in for acute non-Q wave VA. Chronic stable medical conditions include hard of hearing, moderate to severe cognitive impairment, osteoarthritis, BPH, hyperlipidemia. This morning patient underwent cardiac catheterization found to have a totally occluded RCA and a proximal circumflex lesion of 90%. Patient was transferred here to [facility]. Dr. JEY Chi took the patient to [facility] and 4 stents were placed in the RCA. Patient was Alba started on Aggrastat to get the suspected thrombus in the mid RCA. Also possibly a stent in the proximal circumflex. Patient was seen by me initially in the Extended Stay unit. Later was brought to the ICU. Patient had become agitated and required Haldol. 01/02/2024 Patient is evaluated today in follow-up in the ICU. Patient had acute agitation overnight and was uncooperative with taking the Seroquel. For this reason he was given Haldol and Ativan which can in fact make his agitation worse. Patient is postcardiac catheterization with multiple stents to the RCA continues on aspirin Plavix and Eliquis. Family has made this patient a DNR. He is having intermittent episodes of bradycardia down into the 30s and has been started on dopamine infusion at 2.5 mcg. Cardiac catheterization reveals an ejection fraction of 55 to 60% with mild right ventricular enlargement, biatrial enlargement and aortic sclerosis. Blood work today reveals a white blood cell count of 9.1, hemoglobin 10.4, sodium level of 137, BUN of 18, creatinine of 0.81. 01/03/2024 Patient is eval today in follow-up in the intensive care unit. Patient is less agitated more awake and alert and talkative however he is only alert x 1. He is off of the Haldol and Ativan and using Seroquel as needed at bedtime. Patient is postcardiac cath continues on aspirin and Eliquis as well as Plavix. His heart rate has now been in the 70s to 80s normal sinus rhythm was not having any further episodes of bradycardia overnight. Does continue on IV dopamine at this time. He is being hydrated with normal saline. Unable to complete a review of systems at this time as patient is currently sedated in the intensive care unit. PHYSICAL EXAMINATION: GENERAL: The patient is alert and oriented x1-0, not in any acute distress. Well developed, well nourished. Pale, Sedated HEENT: Pupils are round and equally reacting to light. EOMI. No scleral icterus. No conjunctival pallor. Normocephalic, atraumatic. No pharyngeal erythema. No thyromegaly. CARDIOVASCULAR: S1 and S2 present. No murmurs, rubs, or gallops. PULMONARY: Chest is clear to auscultation, no wheezing or crackles. ABDOMEN: Soft, nontender, nondistended, normoactive bowel sounds. No palpable organomegaly. MUSCULOSKELETAL: No joint swelling or deformity. EXTREMITIES: No cyanosis, clubbing, or pedal edema. NEUROLOGICAL: Gross neurological examination did not reveal any focal deficits. SKIN: No rashes. Assessment and Plan -Acute non-Q wave VA, 2 days ago when patient presented to [facility] -Coronary artery disease. Patient received 4 stents to the RCA and possibly 1 stent to the proximal circumflex. -Sinus bradycardia post cath -Possible mid RCA thrombus. 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 Continue cardiac telemetry Cardiology following closely Continues on aspirin and plavix therapy Continue normal saline Repeat blood work in the AM Seroquel scheduled patient is off the Haldol and Ativan PT/OT will be consulted. The impression and plan of care has been dictated by Debi Craig, Nurse Practitioner as directed. Dr. Makenna MD I have performed a history and physical examination and medical decision making of this patient, discussed the same with the dictator, and agree with the dictators assessment and plan as written, documented as a scribe. Based on total visit time, I have performed more than 50% of this visit. Objective - Vital Signs Vital signs: Vital Signs Temp 97.3 F L 01/03/24 04:00 Pulse 81 01/03/24 07:00 Resp 23 01/03/24 07:00 BP 128/71 01/03/24 07:00 Pulse Ox 99 01/03/24 04:00 FiO2 Intake & Output 01/02/24 01/03/24 01/03/24 18:59 06:59 18:59 Intake Total 675 942 75 Output Total 835 1215 50 Balance -160 -273 25 Weight 80.6 kg 80 kg Intake: IV 675 900 75 Sodium Chloride 0.9% 1, 675 900 75 000 ml @ 75 mls/hr IV . [id number] [facility] Rx#:[id number] Tube Feeding 42 Output: Urine 835 1215 50 Other: Voiding Method Indwelling Catheter Indwelling Catheter - Labs CBC & Chem 7: 01/03/24 05:55 01/03/24 05:55 Labs: Abnormal Lab Results - Last 24 Hours (Table) 01/03/24 01/03/24 Range/Units 05:55 05:55 RBC 3.40 L (4.30-5.90) m/uL Hgb 10.3 L (13.0-17.5) gm/dL Hct 32.3 L (39.0-53.0) % Sodium 136 L (137-145) mmol/L Chloride 111 H (98-107) mmol/L Carbon Dioxide 15 L (22-30) mmol/L Assessment and Plan Time with Patient: Less than 30
[2024-01-03 17:04] LABS: Glucose,Whole Blood 87 mg/dL (70-110)
--- NOTE | 2024-01-03 18:45 | P.PN ---
Subjective Progress Note Date: 01/03/24 HISTORY OF PRESENTING ILLNESS 88-year-old who initially presented to [facility] on December 30. For NSTEMI underwent a cardiac catheterization which showed totally occluded RCA and 90% circumflex disease. For this he got 4 stents to RCA and PCI of LCx. Due to significant clot burden, he also received Aggrastat. He has been managed in ICU. During his ICU st stay he has been having pauses. For this his beta-manny was stopped. On careful review of his ECG and telemetry it appears that patient is in paroxysmal atrial fibrillation and he is having frequent conversion pauses. Progress note January 03, 2024 Patient is seen and examined at bedside this a.m. Patient's heart rate is much better controlled today with no bradycardic episodes. He is in sinus rhythm. It appears that his bradycardic episode have resolved since that he is maintaining sinus rhythm and there is no conversion pauses. He is much more alert and awake today. Able to swallow all of his medications. PHYSICAL EXAMINATION Vital signs reviewed. Head: Normocephalic. Eyes: Sclerae nonicteric. Neck: Brisk carotid upstroke, no jugular venous distention. Lungs: Poor respiratory effort, diminished breath sounds, mild rhonchi audible. Heart: Irregularly irregular pulse, mild systolic murmur audible Abdomen: Soft nontender, positive bowel sounds. Extremities: No edema, intact distal pulses. Neuro: Detailed neuro exam was not performed. ASSESSMENT CAD with NSTEMI s/p PCI to RCA and LCx Paroxysmal atrial fibrillation Pauses with bradycardia, likely due to conversion pauses from atrial fibrillation Delirium, resolved Dementia Echo shows EF 55%, moderate LVH, mild RV dilatation, biatrial dilatation, aortic sclerosis but no stenosis, mild MR PLAN Discontinue dobutamine drip. Continue p.o. amiodarone 400 mg twice daily. Continue aspirin, Plavix Continue Eliquis 2.5 mg twice daily. Hold all AV yefri blocking agents Continue losartan 25 mg daily He will be discharged on his current cardiac medical regimen. After 1 month we will discontinue his aspirin and continue Eliquis and Plavix. After 1 year we will drop his Plavix and will add aspirin to his Eliquis. Continue amiodarone taper at discharge. Amiodarone 400 mg twice daily for 7 days, thereafter 200 mg twice daily for 7 days, thereafter 200 mg daily. Will continue amiodarone for rhythm control at least for 4 to 6 months. Consider discontinuing amiodarone thereafter. Okay to be transferred out of ICU Plan to be discharged tomorrow. Objective - Vital Signs Vital signs: Vital Signs Temp 98.0 F 01/03/24 16:30 Pulse 72 01/03/24 17:00 Resp 24 01/03/24 17:00 BP 126/72 01/03/24 17:00 Pulse Ox 95 01/03/24 17:00 FiO2 Intake & Output 01/02/24 01/03/24 01/03/24 18:59 06:59 18:59 Intake Total 675 942 960.192 Output Total 835 1215 775 Balance -160 -273 185.192 Weight 80.6 kg 80 kg Intake: IV 675 900 850 Magnesium Sulfate-D5w Pmx 100 1 gm In Dextrose/Water 1 100ml.bag @ 100 mls/hr IVPB ONCE ONE Rx#: [id number] Sodium Chloride 0.9% 1, 675 900 750 000 ml @ 75 mls/hr IV . [id number] [facility] Rx#:[id number] Intake, IV Titration 110.192 Amount DOPamine DRIP 800 mg In 110.192 Dextrose/Water 1 250ml. bag @ 2.5 MCG/KG/MIN 3. 778 mls/hr IV .Q24H [facility] Rx#:[id number] Tube Feeding 42 Output: Urine 835 1215 775 Other: Voiding Method Indwelling Catheter Indwelling Catheter Indwelling Catheter - Labs CBC & Chem 7: 01/03/24 05:55 01/03/24 05:55 Labs: Abnormal Lab Results - Last 24 Hours (Table) 01/03/24 01/03/24 Range/Units 05:55 05:55 RBC 3.40 L (4.30-5.90) m/uL Hgb 10.3 L (13.0-17.5) gm/dL Hct 32.3 L (39.0-53.0) % Sodium 136 L (137-145) mmol/L Chloride 111 H (98-107) mmol/L Carbon Dioxide 15 L (22-30) mmol/L
--- NOTE | 2024-01-04 02:01 | CT ---
EXAM: CT Head Without Intravenous Contrast CLINICAL HISTORY: ITS.REASON CT Reason: fall TECHNIQUE: Axial computed tomography images of the head/brain without intravenous contrast. CTDI is 49.2 mGy and DLP is 1240.4 mGy-cm. This CT exam was performed using one or more of the following dose reduction techniques: automated exposure control, adjustment of the mA and/or kV according to patient size, and/or use of iterative reconstruction technique. COMPARISON: No relevant prior studies available. FINDINGS: Brain: There is a small mild of subdural blood over the anterior frontal lobes. Remote ischemic injury of the right cerebellum. Dilated perivascular space or remote lacunar infarct of the right caudate head. Advanced nonspecific white matter changes. No edema. Ventricles: Mild ventriculomegaly. Bones/joints: Unremarkable. No acute fracture. Soft tissues: Unremarkable. Sinuses: Chronic ethmoid sinusitis. No acute sinusitis. Mastoid air cells: Unremarkable as visualized. No mastoid effusion. IMPRESSION: There is a small amount of acute subdural blood over the anterior frontal lobe convexities. Recommend short-term interval follow-up to evaluate for stability. <MYCVCSECTION> Communications: 01/04/24 02:44 Call Doctor Regarding Above results, called Dr. Jones on 01/03 02:44 (-04:00)
[2024-01-04 06:36] LABS: Glucose,Whole Blood 84 mg/dL (70-110)
--- NOTE | 2024-01-04 07:01 | CT ---
EXAM: CT Head Without Intravenous Contrast CLINICAL HISTORY: ITS.REASON CT Reason: Subdural bleed TECHNIQUE: Axial computed tomography images of the head/brain without intravenous contrast. CTDI is 98.37 mGy and DLP is 2426.4 mGy-cm. This CT exam was performed using one or more of the following dose reduction techniques: automated exposure control, adjustment of the mA and/or kV according to patient size, and/or use of iterative reconstruction technique. COMPARISON: CT dated 01/03/2024 confluent hypodense changes are seen within the periventricular and deep white matter. FINDINGS: Brain: Unremarkable. No hemorrhage. No significant white matter disease. No edema. Ventricles: Symmetric widening of the ventricles and sulci without evidence of midline shift or hydrocephalus. Bones/joints: Unremarkable. No acute fracture. Soft tissues: Unremarkable. Sinuses: Unremarkable as visualized. No acute sinusitis. Mastoid air cells: Unremarkable as visualized. No mastoid effusion. IMPRESSION: 1. Chronic small vessel ischemic change, mild to moderate cerebral atrophy. 2. The previously noted hyperdensity seen anterior to the bilateral frontal lobes is not visualized in today's examination and may be sequela of the hardening artifact on prior CT. 3. No definitive intracranial hemorrhage.
[2024-01-04 09:49] LABS: African American GFR (CKD) >90 (>60 ml/min/1.73 sqM); Anion Gap 5 mmol/L; Blood Urea Nitrogen 13 mg/dL (9-20); Calcium 9.2 mg/dL (8.4-10.2); Carbon Dioxide 20 mmol/L (22-30); Chloride 111 mmol/L (98-107); Glucose 109 mg/dL (74-99); Magnesium 1.8 mg/dL (1.6-2.3); Non-African American GFR(CKD) 80 (>60 ml/min/1.73 sqM); Potassium 3.5 mmol/L (3.5-5.1); Sodium 136 mmol/L (137-145)
[2024-01-04 09:55] LABS: Basophils % (A) 1 %; Eosinophils # (A) 0.2 k/uL (0-0.7); Eosinophils % (A) 4 %; HCT 34.6 % (39.0-53.0); HGB 11.6 gm/dL (13.0-17.5); Lymphocytes # (A) 0.7 k/uL (1.0-4.8); Lymphocytes % (A) 12 %; MCH 31.7 pg (25.0-35.0); MCHC 33.5 g/dL (31.0-37.0); MCV 94.6 fL (80.0-100.0); Mean Platelet Volume 7.3; Monocytes # (A) 0.4 k/uL (0-1.0); Monocytes % (A) 6 %; Neutrophils # (A) 4.4 k/uL (1.3-7.7); Neutrophils % (A) 77 %; Platelet Count 318 k/uL (150-450); RBC 3.65 m/uL (4.30-5.90); RDW 13.2 % (11.5-15.5); WBC 5.7 k/uL (3.8-10.6)
--- NOTE | 2024-01-04 10:18 | P.CNNES ---
History of Present Illness Consult date: 01/04/24 Requesting physician: Kori Jones Reason for Consult: subdural bleed History of Present Illness: This is an 88-year-old gentleman with history of dementia who presented to [facility] on December 30 with chest pain and he underwent cardiac cath on 01/02/2024 which shows totally occluded right ICA and proximal Sulfalax lesion of 90%. He was transferred to [facility] for escalation of care. Per the nurse, overnight seems to the patient had a fall and unsure of the exact details it seems that per the nurse's note he bypass bed alarm and was found by their way so a CT of the head was ordered And the initial CT shows a small amount of acute subdural blood over the anterior frontal lobe convexity and they recommended short-term interval follow-up to evaluate for stability. Then later he had a follow-up CT of the head which shows chronic small vessel ischemic change, mild to moderate cerebral atrophy. The previously noted hyper density seen anterior to the bilateral frontal lobe is not visualized in today's examination and may be sequela of the hardening artifact on the prior CT. No different intracranial hemorrhage. I personally reviewed the CT and I agree with the finding of the second CT. I did not appreciate any bleed on the first or the second in my opinion. Of the bleed patient was scheduled to be transferred to [facility] for neurosurgical evaluation and his colitis and Plavix was held. 10 denies any headache, focal weakness, any numbness, any nausea any vomiting any speech difficulty. He feels he is doing well. Per the nurse the head him yesterday as well as today she feels she is doing the same and does not seem any worse today compared to yesterday and she feels he is at baseline. Review of Systems Limited but the positive and negative as per HPI. Past Medical History Past Medical History: Asthma, COPD, Hyperlipidemia, Prostate Disorder Additional Past Medical History / Comment(s): shingles L groin/L hip/buttock in past and has post herpetic neuralgia, glaucoma. History of Any Multi-Drug Resistant Organisms: None Reported Past Surgical History: Hernia Repair Additional Past Surgical History / Comment(s): colonoscopy, hemorrhoidectomy, arm surgery after injury (cannot recall laterality). Past Anesthesia/Blood Transfusion Reactions: No Reported Reaction Past Psychological History: No Psychological Hx Reported Additional Psychological History / Comment(s): Pt resides with his spouse. He is an [employer] who served over in [place]. He is independent. Smoking Status: Former smoker Past Alcohol Use History: Rare Additional Past Alcohol Use History / Comment(s): Pt started smoking in 1954 and quit in 1976 Past Drug Use History: None Reported - Past Family History Father History Unknown: Yes Additional Family Medical History / Comment(s): Father in WWII, when pt was young. Mother History Unknown: Yes Additional Family Medical History / Comment(s): Mother left when pt was 5 yrs old. Pt was raised by his grandmother. Medications and Allergies Home Medications Medication Instructions Recorded Confirmed Type Albuterol Inhaler [Ventolin Hfa 1 - 2 puff INHALATION RT-Q6H PRN 04/25/17 01/01/24 History Inhaler] Latanoprost [Latanoprost 0.005%] 1 drop BOTH EYES HS 01/01/24 01/01/24 History Pregabalin [Lyrica] 75 mg PO BID 01/01/24 01/01/24 History Timolol 0.5% Ophth Soln [Timoptic 1 drop BOTH EYES DAILY 01/01/24 01/01/24 History 0.5% Ophth Soln] Allergies Allergy/AdvReac Type Severity Reaction Status Date / Time ciprofloxacin [From Cipro] Allergy Unknown Verified 01/01/24 14:08 Penicillins Allergy Unknown Verified 01/01/24 14:08 Childhood Physical Examination - Vital Signs Vital Signs: Vital Signs Temp Pulse Resp BP Pulse Ox 01/04/24 09:00 98.0 F 117 H 17 103/68 98 01/04/24 08:00 98.8 F 102 H 22 103/82 01/04/24 07:00 78 19 126/70 95 01/04/24 06:00 114/68 01/04/24 05:00 77 18 105/68 97 01/04/24 04:00 98.4 F 76 16 106/72 98 01/04/24 03:00 78 17 101/61 99 01/04/24 02:00 81 18 114/64 96 01/04/24 01:00 90 16 118/85 96 01/04/24 00:26 96 16 103/76 98 01/04/24 00:00 89 19 106/62 98 01/03/24 23:00 108 H 20 109/67 98 01/03/24 22:00 81 16 131/74 95 01/03/24 21:00 79 19 130/72 93 L 01/03/24 20:00 98.9 F 81 18 126/72 97 01/03/24 19:00 80 16 144/85 99 01/03/24 18:30 83 14 139/79 99 01/03/24 18:00 71 23 133/73 97 01/03/24 17:30 74 25 H 121/81 99 01/03/24 17:00 72 24 126/72 95 01/03/24 16:30 98.0 F 69 20 129/76 96 01/03/24 16:00 77 24 121/66 96 01/03/24 15:30 87 11 L 125/78 94 L 01/03/24 15:00 77 15 131/73 95 01/03/24 14:30 79 19 124/71 98 01/03/24 14:00 85 18 113/73 98 01/03/24 13:30 74 20 129/70 97 01/03/24 13:00 81 22 123/76 98 01/03/24 12:30 78 23 129/75 99 01/03/24 12:00 98.0 F 80 18 130/78 98 01/03/24 11:30 75 18 131/73 100 01/03/24 11:00 75 20 126/74 97 01/03/24 10:30 79 24 125/71 98 Intake and Output 01/03/24 01/04/24 01/04/24 22:59 06:59 14:59 Intake Total 485.192 Output Total 430 460 55 Balance 55.192 -460 -55 Intake: IV 375 Sodium Chloride 0.9% 1, 375 000 ml @ 75 mls/hr IV . [id number] [facility] Rx#:[id number] Intake, IV Titration 110.192 Amount DOPamine DRIP 800 mg In 110.192 Dextrose/Water 1 250ml. bag @ 2.5 MCG/KG/MIN 3. 778 mls/hr IV .Q24H [facility] Rx#:[id number] Output: Urine 430 460 55 Other: Voiding Method Indwelling Catheter Indwelling Catheter # Bowel Movements 3 GENERAL: The patient is lying in bed and is not in acute distress. HENT: Supple neck. NEUROLOGICAL: Higher mental function: The patient is awake, alert, oriented to self and stated he was in the hospital. Able to identify objects such as pen and watch. He is following simple commands. No aphasia. Cranial nerves: The pupils are round, equal and reactive to light and accommodation. Visual schneider are full to confrontation throughout. Extraocular movement is intact no nystagmus is noted. Facial sensation is normal to touch throughout. The facial strength is normal throughout. Hearing is moderately decreased bilaterally to hand rub. Tongue is midline and moved [id number] without any difficulty. No dysarthria is noted. Shoulder shrug is normal b ilaterally. Motor: The strength is 5 over 5 throughout. Normal tone and bulk. Cerebellum: Normal finger to nose bilaterally. Sensation: Sensation is normal to touch throughout. Reflexes (right/left):2+ throughout but ankles are 1+ throughout. Plantars are downgoing bilaterally. Results - Laboratory Findings CBC and BMP: 01/04/24 09:23 01/04/24 09:23 Abnormal Lab Findings: Abnormal Labs 01/02/24 01/02/24 01/02/24 00:21 05:31 05:31 RBC 3.13 L Hgb 10.4 L Hct 29.8 L Lymphocytes # Sodium 135 L Chloride 112 H 113 H Carbon Dioxide 16 L 18 L Glucose 01/03/24 01/03/24 01/04/24 05:55 05:55 09:23 RBC 3.40 L 3.65 L Hgb 10.3 L 11.6 L Hct 32.3 L 34.6 L Lymphocytes # 0.7 L Sodium 136 L Chloride 111 H Carbon Dioxide 15 L Glucose 01/04/24 09:23 RBC Hgb Hct Lymphocytes # Sodium 136 L Chloride 111 H Carbon Dioxide 20 L Glucose 109 H Assessment and Plan Assessment: This is an 88-year-old gentleman with history of dementia who presented to [facility] on December 30 with chest pain and he underwent cardiac cath on 01/02/2024 which shows totally occluded right ICA and proximal Sulfalax lesion of 90%. He was transferred to [facility] for escalation of care. Overnight he had an unwitnessed fall and had initial CT head reported as a small amount of acute subdural blood over the anterior frontal lobe convexity Then later he had a follow-up CT of the head and reported The previously noted hyper density seen anterior to the bilateral frontal lobe is not visualized in today's examination and may be sequela of the hardening artifact on the prior CT. Unwitnessed fall and I agree with repeat CT head that there is no bleed seen and possibly artifact seen on first CT. the patient is at baseline he is oriented to self as well place he knows he is in the hospital. Per the nurse mentation is the same today compared to yesterday. Patient denies of any headache nausea vomiting or any neurological deficit Acute Coronary artery disease with NSTEMI status post PCI to the RCA and LCX Underying history of dementia Paroxysmal atrial fibrillation on Eliquis Positive bradycardia Plan: I do not appreciate any bleed seen on the first or the repeat CT as mentioned earlier. From neurology perspective can resume anticoagulation as well as antiplatelet. Will Get a repeat CT of the head for tomorrow morning. Will defer the rest of the medical management the primary and other special Plan discussed with the patient's ICU nurse. Thank for the consultation Dr. Patrick will resume neurology service tomorrow A.M. Time with Patient: Greater than 30
--- NOTE | 2024-01-04 10:54 | P.CNPUL ---
History of Present Illness Consult date: 01/04/24 Requesting physician: Elmer Dhaliwal Reason for consult: other (ICU management) Chief complaint: Chest pain History of present illness: This is an 88-year-old white male with history of dysuria, degenerative joint disease, dyslipidemia, hypertension, patient was admitted recently on December 30 to [facility] with chest pain. Patient underwent cardiac catheterization and he was found to have totally occluded RCA in the proximal circumflex lesion of 90%, hence the patient was transferred to [facility], underwent percutaneous transluminal coronary angioplasty and stenting of totally occluded proximal/mid right coronary artery with drug- eluting stents percutaneous transluminal coronary angioplasty and stenting of proximal nondominant circumflex coronary artery with drug-eluting stent. This was done on 01/01/2024, and the patient was admitted to the ICU apparently while in the, overnight the patient had a fall, unsure of the exact details of the fall, CT of the head after the fall questioned a small amount of acute subdural blood over the anterior frontal lobe convexity. Hence anticoagulation therapy was stopped on the patient overnight, and repeat CT of the brain done this morning showed no evidence of any bleeding. I reviewed both scans of the head, did not appreciate any bleeding myself. Neurology saw the patient, and felt the same. Hence the patient will be restarted back on anticoagulation therapy, and actually at this point I doubt need for transfer to [facility]. I believe the patient could even be safely transferred out of the ICU to medical floor. During my evaluation, patient had no symptoms, no headache, no blurred vision, n o dizziness, no shortness of breath, no cough, no wheezing and no chest pain. Patient does have a mild cognitive dysfunction. Labs today show WBC count is 5.7 hemoglobin 11.6 electrolytes are normal renal profile is normal Review of Systems REVIEW OF SYSTEMS: CONSTITUTIONAL: Negative. EYES: Negative. ENT: Negative. CARDIAC: As noted in HPI PULMONARY: As above. GI: Negative. GENITOURINARY: Negative. MUSCULOSKELETAL: Negative. SKIN: Negative. NEUROPSYCH: As noted in HPI ENDOCRINE: Negative. HEMATOLOGIC: Negative. Past Medical History Past Medical History: Asthma, COPD, Hyperlipidemia, Prostate Disorder Additional Past Medical History / Comment(s): shingles L groin/L hip/buttock in past and has post herpetic neuralgia, glaucoma. History of Any Multi-Drug Resistant Organisms: None Reported Past Surgical History: Hernia Repair Additional Past Surgical History / Comment(s): colonoscopy, hemorrhoidectomy, arm surgery after injury (cannot recall laterality). Past Anesthesia/Blood Transfusion Reactions: No Reported Reaction Past Psychological History: No Psychological Hx Reported Additional Psychological History / Comment(s): Pt resides with his spouse. He is an [employer] who served over in [place]. He is independent. Smoking Status: Former smoker Past Alcohol Use History: Rare Additional Past Alcohol Use History / Comment(s): Pt started smoking in 1953 and quit in 1976 Past Drug Use History: None Reported - Past Family History Father History Unknown: Yes Additional Family Medical History / Comment(s): Father in WWII, when pt was young. Mother History Unknown: Yes Additional Family Medical History / Comment(s): Mother left when pt was 5 yrs old. Pt was raised by his grandmother. Medications and Allergies Home Medications Medication Instructions Recorded Confirmed Type Albuterol Inhaler [Ventolin Hfa 1 - 2 puff INHALATION RT-Q6H PRN 04/25/17 01/01/24 History Inhaler] Latanoprost [Latanoprost 0.005%] 1 drop BOTH EYES HS 01/01/24 01/01/24 History Pregabalin [Lyrica] 75 mg PO BID 01/01/24 01/01/24 History Timolol 0.5% Ophth Soln [Timoptic 1 drop BOTH EYES DAILY 01/01/24 01/01/24 History 0.5% Ophth Soln] Allergies Allergy/AdvReac Type Severity Reaction Status Date / Time ciprofloxacin [From Cipro] Allergy Unknown Verified 01/01/24 14:08 Penicillins Allergy Unknown Verified 01/01/24 14:08 Childhood Physical Exam Vitals: Vital Signs Temp Pulse Resp BP Pulse Ox 01/04/24 10:00 104 H 22 101/59 01/04/24 09:00 98.0 F 117 H 17 103/68 98 01/04/24 08:00 98.8 F 102 H 22 103/82 98 01/04/24 07:00 78 19 126/70 95 01/04/24 06:00 114/68 01/04/24 05:00 77 18 105/68 97 01/04/24 04:00 98.4 F 76 16 106/72 98 01/04/24 03:00 78 17 101/61 99 01/04/24 02:00 81 18 114/64 96 01/04/24 01:00 90 16 118/85 96 01/04/24 00:26 96 16 103/76 98 01/04/24 00:00 89 19 106/62 98 01/03/24 23:00 108 H 20 109/67 98 01/03/24 22:00 81 16 131/74 95 01/03/24 21:00 79 19 130/72 93 L 01/03/24 20:00 98.9 F 81 18 126/72 97 01/03/24 19:00 80 16 144/85 99 01/03/24 18:30 83 14 139/79 99 01/03/24 18:00 71 23 133/73 97 01/03/24 17:30 74 25 H 121/81 99 01/03/24 17:00 72 24 126/72 95 01/03/24 16:30 98.0 F 69 20 129/76 96 01/03/24 16:00 77 24 121/66 96 01/03/24 15:30 87 11 L 125/78 94 L 01/03/24 15:00 77 15 131/73 95 01/03/24 14:30 79 19 124/71 98 01/03/24 14:00 85 18 113/73 98 01/03/24 13:30 74 20 129/70 97 01/03/24 13:00 81 22 123/76 98 01/03/24 12:30 78 23 129/75 99 01/03/24 12:00 98.0 F 80 18 130/78 98 01/03/24 11:30 75 18 131/73 100 01/03/24 11:00 75 20 126/74 97 Intake and Output 01/03/24 01/04/24 01/04/24 22:59 06:59 14:59 Intake Total 485.192 Output Total 430 460 305 Balance 55.192 -460 -305 Intake: IV 375 Sodium Chloride 0.9% 1, 375 000 ml @ 75 mls/hr IV . [id number] [facility] Rx#:[id number] Intake, IV Titration 110.192 Amount DOPamine DRIP 800 mg In 110.192 Dextrose/Water 1 250ml. bag @ 2.5 MCG/KG/MIN 3. 778 mls/hr IV .Q24H [facility] Rx#:[id number] Output: Urine 430 460 305 Other: Voiding Method Indwelling Catheter Indwelling Catheter Indwelling Catheter # Bowel Movements 3 General: Revealed 88-year-old white male comfortable, not in any distress. Skin: Skin is warm and dry and no rashes or lesions are noted. Eye: Pupils are equal, round and reactive to light, extra-ocular movements are intact; there is normal conjunctiva bilaterally. Ears, nose, mouth and throat: There are moist mucous membranes and no oral lesions. Neck: The neck is supple, there is no tenderness or JVD. Cardiovascular: Normal S1-S2, no S3 gallop. No murmur Respiratory: Clear throughout no crackles rhonchi or wheezes Gastrointestinal: Soft, non-distended, non-tender abdomen without masses or organomegaly noted. There is no rebound or guarding present. Bowel sounds are unremarkable. Back: There is no tenderness to palpation in the midline. There is no obvious deformity. Musculoskeletal: Normal ROM, no tenderness, There is no pedal edema. There is no calf tenderness or swelling. No cords were appreciated. Neurological: Awake, alert, follows simple commands, no gross focal neurologic deficit. Psychiatric: Normal mood, normal affect, Results - Laboratory Findings CBC and BMP: 01/04/24 09:23 01/04/24 09:23 Abnormal lab findings: Abnormal Labs 01/02/24 01/02/24 01/02/24 00:21 05:31 05:31 RBC 3.13 L Hgb 10.4 L Hct 29.8 L Lymphocytes # Sodium 135 L Chloride 112 H 113 H Carbon Dioxide 16 L 18 L Glucose 01/03/24 01/03/24 01/04/24 05:55 05:55 09:23 RBC 3.40 L 3.65 L Hgb 10.3 L 11.6 L Hct 32.3 L 34.6 L Lymphocytes # 0.7 L Sodium 136 L Chloride 111 H Carbon Dioxide 15 L Glucose 01/04/24 09:23 RBC Hgb Hct Lymphocytes # Sodium 136 L Chloride 111 H Carbon Dioxide 20 L Glucose 109 H - Diagnostic Findings Additional studies: CT of the brain done last night and CT of the brain done this morning were both reviewed, as noted in HPI Assessment and Plan Assessment: Impression: Status post fall, doubt any significant brain injury after reviewing CT of the brain x 2 Acute non-ST elevation myocardial infarction status post multiple stents as noted in HPI. PCI to RCA and left circumflex Paroxysmal atrial fibrillation History of underlying dementia bradycardia most likely secondary to beta-blockers which have been discontinued. Recommendation: Continue present supportive care measures Incentive spirometry Ambulate patient Fall precautions Continue cardiac meds including amiodarone, aspirin, Plavix, statins, nitroglycerin,, as ordered by cardiology post stent placement x 2 My recommendation would be to transfer the patient to a monitored bed and selective No need for transfer to [facility] since CT of the brain x 2 has been negative Discharge planning and placement possibly in the next 24 hours. Will continue to follow Time with Patient: Greater than 30
[2024-01-04 12:29] LABS: Glucose,Whole Blood 96 mg/dL (70-110)
--- NOTE | 2024-01-04 13:30 | P.PN ---
Subjective Progress Note Date: 01/04/24 HISTORY OF PRESENTING ILLNESS 88-year-old who initially presented to [facility] on December 30. For NSTEMI underwent a cardiac catheterization which showed totally occluded RCA and 90% circumflex disease. For this he got 4 stents to RCA and PCI of LCx. Due to significant clot burden, he also received Aggrastat. He has been managed in ICU. During his ICU st stay he has been having pauses. For this his beta-manny was stopped. On careful review of his ECG and telemetry it appears that patient is in paroxysmal atrial fibrillation and he is having frequent conversion pauses. Progress note January 03, 2024 Patient is seen and examined at bedside this a.m. Patient's heart rate is much better controlled today with no bradycardic episodes. He is in sinus rhythm. It appears that his bradycardic episode have resolved since that he is maintaining sinus rhythm and there is no conversion pauses. He is much more alert and awake today. Able to swallow all of his medications. January 04, 2024 Patient is seen and examined at bedside this a.m. Patient is doing well from cardiovascular standpoint. Atrial fibrillation but is rate controlled with no pauses on telemetry. Yesterday night he had a fall while he got agitated and fell out of bed. PHYSICAL EXAMINATION Vital signs reviewed. Head: Normocephalic. Eyes: Sclerae nonicteric. Neck: Brisk carotid upstroke, no jugular venous distention. Lungs: Poor respiratory effort, diminished breath sounds, mild rhonchi audible. Heart: Irregularly irregular pulse, mild systolic murmur audible Abdomen: Soft nontender, positive bowel sounds. Extremities: No edema, intact distal pulses. Neuro: Detailed neuro exam was not performed. ASSESSMENT CAD with NSTEMI s/p PCI to RCA and LCx Paroxysmal atrial fibrillation Pauses with bradycardia, likely due to conversion pauses from atrial fibrillation Delirium, resolved Dementia Echo shows EF 55%, moderate LVH, mild RV dilatation, biatrial dilatation, aortic sclerosis but no stenosis, mild MR PLAN Continue p.o. amiodarone 400 mg twice daily. Continue aspirin, Plavix Continue Eliquis 2.5 mg twice daily. Hold all AV yefri blocking agents Continue losartan 25 mg daily PT OT evaluation and social work consult for discharge planning and to assess patient is stable on foot He will be discharged on his current cardiac medical regimen. After 1 month we will discontinue his aspirin and continue Eliquis and Plavix. After 1 year we will drop his Plavix and will add aspirin to his Eliquis. Continue amiodarone taper at discharge. Amiodarone 400 mg twice daily for 7 days, thereafter 200 mg twice daily for 7 days, thereafter 200 mg daily. Will continue amiodarone for rhythm control at least for 4 to 6 months. Consider discontinuing amiodarone thereafter. Okay to be transferred out of ICU Plan to be discharged tomorrow. Objective - Vital Signs Vital signs: Vital Signs Temp 98.4 F 01/04/24 12:00 Pulse 86 01/04/24 13:00 Resp 25 H 01/04/24 13:00 BP 105/73 01/04/24 13:00 Pulse Ox 967 H 01/04/24 12:00 FiO2 Intake & Output 01/03/24 01/04/24 01/04/24 18:59 06:59 18:59 Intake Total 1035.192 75 Output Total 825 720 305 Balance 210.192 -645 -305 Intake: IV 925 75 Magnesium Sulfate-D5w Pmx 100 1 gm In Dextrose/Water 1 100ml.bag @ 100 mls/hr IVPB ONCE ONE Rx#: [id number] Sodium Chloride 0.9% 1, 825 75 000 ml @ 75 mls/hr IV . [id number] [facility] Rx#:[id number] Intake, IV Titration 110.192 Amount DOPamine DRIP 800 mg In 110.192 Dextrose/Water 1 250ml. bag @ 2.5 MCG/KG/MIN 3. 778 mls/hr IV .Q24H [facility] Rx#:[id number] Output: Urine 825 720 305 Other: Voiding Method Indwelling Catheter Indwelling Catheter Indwelling Catheter # Bowel Movements 3 - Labs CBC & Chem 7: 01/04/24 09:23 01/04/24 09:23 Labs: Abnormal Lab Results - Last 24 Hours (Table) 01/04/24 01/04/24 Range/Units 09: 09:23 RBC 3.65 L (4.30-5.90) m/uL Hgb 11.6 L (13.0-17.5) gm/dL Hct 34.6 L (39.0-53.0) % Lymphocytes # 0.7 L (1.0-4.8) k/uL Sodium 136 L (137-145) mmol/L Chloride 111 H (98-107) mmol/L Carbon Dioxide 20 L (22-30) mmol/L Glucose 109 H (74-99) mg/dL
--- NOTE | 2024-01-04 15:58 | P.PN ---
Subjective Progress Note Date: 01/04/24 This is a 88-year-old patient, with Dr. Thapa. Who presented to [facility] on December 30. He presented there with chest pain. EMS reported low blood pressure received IV fluids. Ruled in for acute non-Q wave ID. Chronic stable medical conditions include hard of hearing, moderate to severe cognitive impairment, osteoarthritis, BPH, hyperlipidemia. This morning patient underwent cardiac catheterization found to have a totally occluded RCA and a proximal circumflex lesion of 90%. Patient was transferred here to [facility]. Dr. JEY Chi took the patient to [facility] [employer] and 4 stents were placed in the RCA. Patient was Alba started on Aggrastat to get the suspected thrombus in the mid RCA. Also possibly a stent in the proximal circumflex. Patient was seen by me initially in the Extended Stay unit. Later was brought to the ICU. Patient had become agitated and required Haldol. 01/02/2024 Patient is evaluated today in follow-up in the ICU. Patient had acute agitation overnight and was uncooperative with taking the Seroquel. For this reason he was given Haldol and Ativan which can in fact make his agitation worse. Patient is postcardiac catheterization with multiple stents to the RCA continues on aspirin Plavix and Eliquis. Family has made this patient a DNR. He is having intermittent episodes of bradycardia down into the 30s and has been started on dopamine infusion at 2.5 mcg. Cardiac catheterization reveals an ejection fraction of 55 to 60% with mild right ventricular enlargement, biatrial enlargement and aortic sclerosis. Blood work today reveals a white blood cell count of 9.1, hemoglobin 10.4, sodium level of 137, BUN of 18, creatinine of 0.81. 01/03/2024 Patient is eval today in follow-up in the intensive care unit. Patient is less agitated more awake and alert and talkative however he is only alert x 1. He is off of the Haldol and Ativan and using Seroquel as needed at bedtime. Patient is postcardiac cath continues on aspirin and Eliquis as well as Plavix. His heart rate has now been in the 70s to 80s normal sinus rhythm was not having any further episodes of bradycardia overnight. Does continue on IV dopamine at this time. He is being hydrated with normal saline. 01/04/2024 Patient evaluated in follow-up in the intensive care unit. He does have a senior safety management consultant at the bedside. Patient is actually more awake and alert than y day he is currently alert x 3 with mild moments of confusion still. He is using Seroquel at bedtime. Patient did have a fall overnight while attempting to get out of bed he had ambulated a short distance in the hallway fell hit his head. Initial brain CT reveals evidence of possible subdural hematoma and a transferred to [facility] was initiated for neurosurgery evaluation. However patient had a repeat brain CT done this morning which now reveals no evidence for intracranial hemorrhage and patient's mentation remains significantly improved. He does not have any bruising noted on his head. Neurology is following reviewed both brain CTs and felt that there was no evidence for bleeding on either of the brain CTs. Heart Rate remains in the 70s to 80s normal sinus rhythm. Blood pressure is low normal 90s to low 100s systolic. He has been continued on his Eliquis hemoglobin 11.6 today. Sodium level of 136, BUN of 13, creatinine of 0.82, magnesium of 1.8. Unable to complete a review of systems at this time as patient is currently sedated in the intensive care unit. PHYSICAL EXAMINATION: GENERAL: The patient is alert and oriented x3, not in any acute distress. Well developed, well nourished. Pale, Sedated HEENT: Pupils are round and equally reacting to light. EOMI. No scleral icterus. No conjunctival pallor. Normocephalic, atraumatic. No pharyngeal erythema. No th yromegaly. CARDIOVASCULAR: S1 and S2 present. No murmurs, rubs, or gallops. PULMONARY: Chest is clear to auscultation, no wheezing or crackles. ABDOMEN: Soft, nontender, nondistended, normoactive bowel sounds. No palpable organomegaly. MUSCULOSKELETAL: No joint swelling or deformity. EXTREMITIES: No cyanosis, clubbing, or pedal edema. NEUROLOGICAL: Gross neurological examination did not reveal any focal deficits. SKIN: No rashes. Assessment and Plan -Acute non-Q wave ID, when patient presented to [facility] -Coronary artery disease. Patient received 4 stents to the RCA and possibly 1 stent to the proximal circumflex. -Sinus bradycardia post cath -Fall overnight while up ambulating. Hit head. Repeat CT shows no intracranial hemorrhage. -Possible mid RCA thrombus. 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 Dopamine has been discontinued Continue cardiac telemetry Cardiology following closely Continues on aspirin and plavix therapy, continue on eliquis Monitor hemoglobin. Continue normal saline Repeat blood work in the AM Seroquel scheduled patient is off the Haldol and Ativan PT/OT will be consulted. [facility] repeat CT of the brain better and his mentation has significantly improved stable hemoglobin at this time do not feel transfer is necessary. The impression and plan of care has been dictated by Debi Craig, Nurse Practitioner as directed. Dr. Makenna MD I have performed a history and physical examination and medical decision making of this patient, discussed the same with the dictator, and agree with the dic tators assessment and plan as written, documented as a scribe. Based on total visit time, I have performed more than 50% of this visit. Objective - Vital Signs Vital signs: Vital Signs Temp 98.8 F 01/04/24 08:00 Pulse 102 H 01/04/24 08:00 Resp 22 01/04/24 08:00 BP 103/82 01/04/24 08:00 Pulse Ox 95 01/04/24 07:00 FiO2 Intake & Output 01/03/24 01/04/24 01/04/24 18:59 06:59 18:59 Intake Total 1035.192 75 Output Total 825 720 55 Balance 210.192 -645 -55 Intake: IV 925 75 Magnesium Sulfate-D5w Pmx 100 1 gm In Dextrose/Water 1 100ml.bag @ 100 mls/hr IVPB ONCE ONE Rx#: [id number] Sodium Chloride 0.9% 1, 825 75 000 ml @ 75 mls/hr IV . [id number] [facility] Rx#:[id number] Intake, IV Titration 110.192 Amount DOPamine DRIP 800 mg In 110.192 Dextrose/Water 1 250ml. bag @ 2.5 MCG/KG/MIN 3. 778 mls/hr IV .Q24H [facility] Rx#:[id number] Output: Urine 825 720 55 Other: Voiding Method Indwelling Catheter Indwelling Catheter # Bowel Movements 3 - Labs CBC & Chem 7: 01/04/24 09:23 01/04/24 09:23 Assessment and Plan Time with Patient: Less than 30
[2024-01-04 16:49] LABS: Glucose,Whole Blood 81 mg/dL (70-110)
[2024-01-05 00:19] LABS: Glucose,Whole Blood 100 mg/dL (70-110)
[2024-01-05 00:30] VITALS: TEMP 98.9
[2024-01-05 04:12] VITALS: BP 110/71; PULSE 79; RESP 18
[2024-01-05 12:02] LABS: Glucose,Whole Blood 93 mg/dL (70-110)
[2024-01-05 17:51] LABS: Glucose,Whole Blood 109 mg/dL (70-110)
[2024-01-05 20:52] LABS: Glucose,Whole Blood 103 mg/dL (70-110)
[2024-01-06 06:49] LABS: Glucose,Whole Blood 109 mg/dL (70-110)
[2024-01-06 11:47] LABS: Glucose,Whole Blood 113 mg/dL (70-110)
[2024-01-08] MEDS ORDERED: ALBUMIN HUMAN 5% 250 ML IVPB ONE (16:57)
--- NOTE | 2024-01-26 17:23 | CT ---
DATE OF EXAM: 01/05/2024 EXAM:CT brain without contrast INDICATION: Patient age:VIETTE LEDESMA [id number] Reason for study: F/U bleed COMPARISON: None, please note PACS downtime occurred during the radiologist interpretation of these i mages with limited priors/reports.. TECHNIQUE: Multiple axial CT images of the brain were obtained without IV contrast. One or more CT do se reduction strategies were utilized during this examination. Total DLP administered was 1270 mGycm. FINDINGS: Extra-axial spaces: No abnormal extra-axial fluid collections. Ventricular system: Dilatation in proportion to cerebral atrophy. Cerebral parenchyma: Cerebral atrophy. No acute intraparenchymal hemorrhage or mass effect. The valderrama -white junction is well differentiated. Scattered hypoattenuating areas are seen within the white mat ter. Cerebellum: Unremarkable. Mass effect: No evidence of midline shift. Intracranial vasculature: Atherosclerotic calcifications of the intracranial vessels. Soft tissues: Normal. Calvarium/osseous structures: No depressed skull fracture. Paranasal sinuses and mastoid air cells: Clear. Visualized orbits: Orbital contents are intact. IMPRESSION: 1. No acute intracranial process. 2. Nonspecific white matter changes, likely secondary to chronic small vessel ischemic disease. Called findings to DR Patrick 817 pm 01/05/2024
== END 2024-01-06 15:43 | disposition home or self-care (01) | DRG 321 ==
LOC: 3SCARD 09:56 → 2SICU 12:34
PROVIDERS: ADMIT Hospitalist; ATTEND Hospitalist
PROC: 027137Z Dilation of Coronary Artery, Two Arteries with Four or More Drug-eluting Intraluminal Devices, Percutaneous Approach (ICD-10-PCS; principal; 2024-01-01 16:00)
PROC: B241ZZ3 Ultrasonography of Multiple Coronary Arteries, Intravascular (ICD-10-PCS; principal; 2024-01-01 16:00)
PROC: 4A023N7 Measurement of Cardiac Sampling and Pressure, Left Heart, Percutaneous Approach (ICD-10-PCS; 2024-01-01 16:00)
PROC: B2111ZZ Fluoroscopy of Multiple Coronary Arteries using Low Osmolar Contrast (ICD-10-PCS; 2024-01-01 16:00)
PROC: 0D9670Z Drainage of Stomach with Drainage Device, Via Natural or Artificial Opening (ICD-10-PCS; 2024-01-02)
DX: I21.4 Non-ST elevation (NSTEMI) myocardial infarction (principal); B02.29 Other postherpetic nervous system involvement; F02.811 Dementia in other diseases classified elsewhere, unspecified severity, with agitation; I25.10 Atherosclerotic heart disease of native coronary artery without angina pectoris; I48.0 Paroxysmal atrial fibrillation; G30.1 Alzheimer's disease with late onset; E78.5 Hyperlipidemia, unspecified; I10 Essential (primary) hypertension; I95.9 Hypotension, unspecified; J44.89 Other specified chronic obstructive pulmonary disease; I70.0 Atherosclerosis of aorta; K52.9 Noninfective gastroenteritis and colitis, unspecified; M19.91 Primary osteoarthritis, unspecified site; N40.0 Benign prostatic hyperplasia without lower urinary tract symptoms; Z91.81 History of falling; R00.1 Bradycardia, unspecified; H91.90 Unspecified hearing loss, unspecified ear; H40.9 Unspecified glaucoma; I34.0 Nonrheumatic mitral (valve) insufficiency; Z87.891 Personal history of nicotine dependence; Z66 Do not resuscitate; Z79.01 Long term (current) use of anticoagulants; Z79.899 Other long term (current) drug therapy; Z88.1 Allergy status to other antibiotic agents; Z88.0 Allergy status to penicillin; Z71.3 Dietary counseling and surveillance; Z78.1 Physical restraint status
CPT/HCPCS: 70450; 80048; 83735; 85025; 93306; 94640

== ENCOUNTER → 2024-05-13 | Outpatient (CLI) | payer MEDICARE ==
--- NOTE | 2024-05-13 12:46 | FL ---
Exam Date: 05/13/2024 11:55 AM. Modified barium swallow for dysphagia. Consistencies administered: Various consistency of barium. Fluoro time: 1 min 27 sec No images were sent to PACS. Please see speech pathology report. DAP: not reported mGym2 Gycm2 [facility], , 05/13/2024 12:44 PM
== END | disposition home or self-care (01) ==
LOC: RADFLMAIN 11:13
PROVIDERS: ATTEND Family Medicine
DX: R13.19 Other dysphagia (principal)
CPT/HCPCS: 74230

== ENCOUNTER 2024-08-12 22:35 | Emergency (ER) | payer MEDICARE ==
[2024-08-12 22:50] VITALS: RESP 18
[2024-08-12 23:31] LABS: ALT 12 U/L (4-49); AST 23 U/L (17-59); African American GFR (CKD) 56 (>60 ml/min/1.73 sqM); Albumin 3.8 g/dL (3.5-5.0); Alcohol <10 mg/dL; Alkaline Phosphatase 79 U/L (38-126); Anion Gap 9 mmol/L; Blood Urea Nitrogen 18 mg/dL (9-20); Calcium 9.6 mg/dL (8.4-10.2); Carbon Dioxide 25 mmol/L (22-30); Chloride 103 mmol/L (98-107); Glucose 90 mg/dL (74-99); Non-African American GFR(CKD) 48 (>60 ml/min/1.73 sqM); Potassium 3.9 mmol/L (3.5-5.1); Sodium 137 mmol/L (137-145); Total Bilirubin 0.8 mg/dL (0.2-1.3); Total Protein 6.2 g/dL (6.3-8.2)
--- NOTE | 2024-08-12 23:33 | ED ---
Psych HPI - General Source: patient, family, EMS, RN notes reviewed Mode of arrival: EMS - History of Present Illness MD Complaint: suicidal ideation <Mary Cabral - Last Filed: 08/13/24 03:57> <Fabian Casarez - Last Filed: 08/13/24 13:30> - General Chief Complaint: Psychiatric Symptoms Stated Complaint: Suicidal Time Seen by Provider: 08/12/24 22:50 - History of Present Illness Initial Comments: This is a an 88-year-old male who presents to the emergency department for suicidal ideations. Patient has a history of dementia and lives with his and his son lives across the street. He had reportedly made statements earlier today about wanting to harm himself. This prompted family to call EMS to bring him here for evaluation. Patient does admit to making the statements earlier, but is currently denying any suicidal ideations. Patient's family states that since this past December he has made on and off suicidal statements, however this evening he seemed much more intense and was asking about knives. They are concerned about his safety as well as their own, as he does tend to get up in the middle of the night and do various things as well as leave the house. They are also concerned that he has been hallucinating and thinking that other people are in the house with him, which is not the case. (Mary Cabral) - Related Data Home Medications Medication Instructions Recorded Confirmed Albuterol Inhaler [Ventolin Hfa 1 - 2 puff INHALATION RT-Q6H PRN 04/25/17 01/01/24 Inhaler] Latanoprost [Latanoprost 0.005%] 1 drop BOTH EYES HS 01/01/24 01/01/24 Pregabalin [Lyrica] 75 mg PO BID 01/01/24 01/01/24 Timolol 0.5% Ophth Soln [Timoptic 1 drop BOTH EYES DAILY 01/01/24 01/01/24 0.5% Ophth Soln] Allergies Allergy/AdvReac Type Severity Reaction Status Date / Time ciprofloxacin [From Cipro] Allergy Unknown Verified 08/12/24 22:50 Penicillins Allergy Unknown Verified 08/12/24 22:50 Childhood Review of Systems ROS Other: All systems not noted in ROS Statement are negative. <Mary Cabral - Last Filed: 08/13/24 03:57> ROS Other: All systems not noted in ROS Statement are negative. <Fabian Casarez - Last Filed: 08/13/24 13:30> ROS Statement: Those systems with pertinent positive or pertinent negative responses have been documented in the HPI. Past Medical History Past Medical History: Asthma, COPD, Hyperlipidemia, Prostate Disorder Additional Past Medical History / Comment(s): shingles L groin/L hip/buttock in past and has post herpetic neuralgia, glaucoma. History of Any Multi-Drug Resistant Organisms: None Reported Past Surgical History: Hernia Repair Additional Past Surgical History / Comment(s): colonoscopy, hemorrhoidectomy, arm surgery after injury (cannot recall laterality). Past Anesthesia/Blood Transfusion Reactions: No Reported Reaction Past Psychological History: No Psychological Hx Reported Smoking Status: Former smoker Past Alcohol Use History: Rare Past Drug Use History: None Reported - Past Family History Father History Unknown: Yes Additional Family Medical History / Comment(s): Father in WWII, when pt was young. Mother History Unknown: Yes Additional Family Medical History / Comment(s): Mother left when pt was 5 yrs old. Pt was raised by his grandmother. <Mary Cabral - Last Filed: 08/13/24 03:57> General Exam Limitations: altered mental status General appearance: alert, in no apparent distress Head exam: Present: atraumatic, normocephalic, normal inspection Respiratory exam: Present: normal lung sounds bilaterally. Absent: respiratory distress, wheezes, rales, rhonchi, stridor Cardiovascular Exam: Present: regular rate, normal rhythm Neurological exam: Present: alert, oriented X3, CN II-XII intact Psychiatric exam: Present: normal affect, normal mood Skin exam: Present: warm, dry, intact, normal color. Absent: rash <Mary Cabral - Last Filed: 08/13/24 03:57> Course Vital Signs 08/12/24 08/13/24 08/13/24 22:38 02:10 09:00 Temperature 97.7 F 97.2 F L Pulse Rate 56 L 64 61 Respiratory 18 18 18 Rate Blood Pressure 160/81 150/80 150/79 O2 Sat by Pulse 98 96 99 Oximetry Medical Decision Making - Lab Data Result diagrams: 08/12/24 23:11 08/12/24 23:11 <Mary Cabral - Last Filed: 08/13/24 03:57> - Lab Data Result diagrams: 08/12/24 23:11 08/12/24 23:11 <Fabian Casarez - Last Filed: 08/13/24 13:30> - Medical Decision Making This is an 88 year old male who presents to the emergency department for psychiatric evaluation. Was pt. sent in by a medical professional or institution? @ -No Did you speak to anyone other than the patient for history? @ -Family provided the majority of the history. Did you review nursing and triage notes? @ -Yes, and I agree, it is accurate with regards to the patient's symptoms. Were old charts reviewed? @ -Psychiatric consultation from this facility on 01/02/2024 discussing the patient being diagnosed with dementia about a year prior to this evaluation but not having any psychiatric history. Differential Diagnosis? @ -Differential Mental Health Depression, anxiety, bipolar, psychosis, schizophrenia, borderline personality, situational depression, adjustment disorder, behavioral disorder, brain tumor, malingering, substance abuse, encephalopathy, medication reaction, dementia, hypothyroidism, degenerative neurologic disorder, lupus.... This is not meant to be all-inclusive list EKG interpreted by me (3pts min.)? @ -EKG interpreted by me demonstrating the following: Sinus bradycardia. Ventricular rate 59 bpm, W[place] interval 264 ms, QRS duration 77 ms, QTc 458 ms. X-rays interpreted by me (1pt min.)? @ -Not obtained CT interpreted by me (1pt min.)? @ -Not obtained U/S interpreted by me (1pt. min.)? @ -Not obtained What testing was considered but not performed? (CT, X-rays, U/S, labs)? Why? @ -None What meds were considered but not given? Why? @ -None Did you discuss the management of the patient with other professionals? @ -Yes, Winsome with EPS, who advised that the patient will be transferred to a geriatric psychiatric facility for further care. Did you reconcile home meds? @ -No Was smoking cessation discussed for >3mins.? @ -No Was critical care preformed (if so, how long)? @ -No Were there social determinants of health that impacted care today? How? (H omelessness, low income, unemployed, alcoholism, drug addiction, transportation, low edu. Level, literacy, decrease access to med. care, fci, rehab)? @ -No Was there de-escalation of care discussed even if they declined? (Discuss DNR or withdrawal of care, Hospice)? @ -No What co-morbidities impacted this encounter? (DM, HTN, Smoking, COPD, CAD, Cancer, CVA, Hep., AIDS, mental health diagnosis, sleep apnea, morbid obesity)? @ -Dementia Was patient admitted / discharged? @ -History was difficult to obtain from the patient due to his history of dementia and his son provided the majority of the history. His mental health has been declining since he was hospitalized here in December. They do not believe he takes any psychiatric medications, however he has been on Haldol and Seroquel as needed in the past. He has made suicidal statements on and off over the last several months, however today he seemed much more serious and family was concerned about his safety as well as their own. We did obtain lab work which revealed signs of dehydration and was otherwise unremarkable. He was unable to do the breathalyzer and an alcohol level was obtained off of lab work, which was 0. Urinalysis negative for signs of infection. He was then medically cleared for EPS evaluation. EPS evaluated the patient and advised that he meets criteria for inpatient psychiatric hospitalization due to suicidal ideations with hallucinations and posing a safety risk. Patient will be transferred to a geriatric psychiatric facility. Clinical CERT to be completed by ED attending Dr. Terrell. Undiagnosed new problem with uncertain prognosis? @ -None Drug Therapy requiring intensive monitoring for toxicity (Heparin, Nitro, Insulin, Cardizem)? @ -None Were any procedures done? @ -None Diagnosis/symptom? @ -Suicidal ideations, hallucinations Acute, or Chronic, or Acute on Chronic? @ -Acute Uncomplicated (without systemic symptoms) or Complicated (systemic symptoms)? @ -Complicated Side effects of treatment? @ -None Exacerbation, Progression, or Severe Exacerbation] @ -Not applicable Poses a threat to life or bodily function? @ -Yes, can lead to (Mary Cabral) Patient accepted to geriatric psychiatry at [facility]. Accepting physician is Dr. Felder. (Fabian Casarez) - Lab Data Lab Results 03/13/25 03/13/25 03/13/25 Range/Units 23:11 23:11 23:38 WBC 6.0 (3.8-10.6) k/uL RBC 3.65 L (4.30-5.90) m/uL Hgb 11.8 L (13.0-17.5) gm/dL Hct 36.0 L (39.0-53.0) % MCV 98.6 (80.0-100.0) fL MCH 32.5 (25.0-35.0) pg MCHC 32.9 (31.0-37.0) g/dL RDW 13.6 (11.5-15.5) % Plt Count 168 (150-450) k/uL MPV 7.7 Neutrophils % 50 % Lymphocytes % 36 % Monocytes % 7 % Eosinophils % 3 % Basophils % 1 % Neutrophils # 3.0 (1.3-7.7) k/uL Lymphocytes # 2.2 (1.0-4.8) k/uL Monocytes # 0.4 (0-1.0) k/uL Eosinophils # 0.2 (0-0.7) k/uL Basophils # 0.0 (0-0.2) k/uL Sodium 137 (137-145) mmol/L Potassium 3.9 (3.5-5.1) mmol/L Chloride 103 (98-107) mmol/L Carbon Dioxide 25 (22-30) mmol/L Anion Gap 9 mmol/L BUN 18 (9-20) mg/dL Creatinine 1.33 H (0.66-1.25) mg/dL Est GFR (CKD-EPI)AfAm 56 (>60 ml/min/1.73 sqM) Est GFR (CKD-EPI)NonAf 48 (>60 ml/min/1.73 sqM) Glucose 90 (74-99) mg/dL Calcium 9.6 (8.4-10.2) mg/dL Total Bilirubin 0.8 (0.2-1.3) mg/dL AST 23 (17-59) U/L ALT 12 (4-49) U/L Alkaline Phosphatase 79 (38-126) U/L Total Protein 6.2 L (6.3-8.2) g/dL Albumin 3.8 (3.5-5.0) g/dL Urine Color Light Yellow Urine Appearance Clear (Clear) Urine pH 5.5 (5.0-8.0) Ur Specific Rhodes 1.010 (1.001-1.035) Urine Protein Negative (Negative) Urine Glucose (UA) Negative (Negative) Urine Ketones Negative (Negative) Urine Blood Negative (Negative) Urine Nitrite Negative (Negative) Urine Bilirubin Negative (Negative) Urine Urobilinogen <2.0 (<2.0) mg/dL Ur Leukocyte Esterase Negative (Negative) Urine Opiates Screen (NotDetected) Ur Oxycodone Screen (NotDetected) Urine Methadone Screen (NotDetected) Ur Barbiturates Screen (NotDetected) U Tricyclic Antidepress (NotDetected) Ur Phencyclidine Scrn (NotDetected) Ur Amphetamines Screen (NotDetected) U Methamphetamines Scrn (NotDetected) U Benzodiazepines Scrn (NotDetected) Urine Cocaine Screen (NotDetected) U Marijuana (THC) Screen (NotDetected) Serum Alcohol <10 mg/dL Influenza Type A (PCR) (Not Detectd) Influenza Type B (PCR) (Not Detectd) RSV (PCR) (Not Detectd) SARS-CoV-2 (PCR) (Not Detectd) 08/12/24 08/13/24 Range/Units 23:38 01:21 WBC (3.8-10.6) k/uL RBC (4.30-5.90) m/uL Hgb (13.0-17.5) gm/dL Hct (39.0-53.0) % MCV (80.0-100.0) fL MCH (25.0-35.0) pg MCHC (31.0-37.0) g/dL RDW (11.5-15.5) % Plt Count (150-450) k/uL MPV Neutrophils % % Lymphocytes % % Monocytes % % Eosinophils % % Basophils % % Neutrophils # (1.3-7.7) k/uL Lymphocytes # (1.0-4.8) k/uL Monocytes # (0-1.0) k/uL Eosinophils # (0-0.7) k/uL Basophils # (0-0.2) k/uL Sodium (137-145) mmol/L Potassium (3.5-5.1) mmol/L Chloride (98-107) mmol/L Carbon Dioxide (22-30) mmol/L Anion Gap mmol/L BUN (9-20) mg/dL Creatinine (0.66-1.25) mg/dL Est GFR (CKD-EPI)AfAm (>60 ml/min/1.73 sqM) Est GFR (CKD-EPI)NonAf (>60 ml/min/1.73 sqM) Glucose (74-99) mg/dL Calcium (8.4-10.2) mg/dL Total Bilirubin (0.2-1.3) mg/dL AST (17-59) U/L ALT (4-49) U/L Alkaline Phosphatase (38-126) U/L Total Protein (6.3-8.2) g/dL Albumin (3.5-5.0) g/dL Urine Color Urine Appearance (Clear) Urine pH (5.0-8.0) Ur Specific Rhodes (1.001-1.035) Urine Protein (Negative) Urine Glucose (UA) (Negative) Urine Ketones (Negative) Urine Blood (Negative) Urine Nitrite (Negative) Urine Bilirubin (Negative) Urine Urobilinogen (<2.0) mg/dL Ur Leukocyte Esterase (Negative) Urine Opiates Screen Not Detected (NotDetected) Ur Oxycodone Screen Not Detected (NotDetected) Urine Methadone Screen Not Detected (NotDetected) Ur Barbiturates Screen Not Detected (NotDetected) U Tricyclic Antidepress Detected H (NotDetected) Ur Phencyclidine Scrn Not Detected (NotDetected) Ur Amphetamines Screen Not Detected (NotDetected) U Methamphetamines Scrn Not Detected (NotDetected) U Benzodiazepines Scrn Not Detected (NotDetected) Urine Cocaine Screen Not Detected (NotDetected) U Marijuana (THC) Screen Not Detected (NotDetected) Serum Alcohol mg/dL Influenza Type A (PCR) Not Detected (Not Detectd) Influenza Type B (PCR) Not Detected (Not Detectd) RSV (PCR) Not Detected (Not Detectd) SARS-CoV-2 (PCR) Not Detected (Not Detectd) Disposition <Mary Cabral - Last Filed: 08/13/24 03:57> <Fabian Casarez - Last Filed: 08/13/24 13:30> Clinical Impression: Suicidal ideation, Hallucinations Disposition: TRANSFER TO PSYCH HOSP/UNIT Condition: Stable Referrals: uGs Thapa DO [Primary Care Provider] - 1-2 days
[2024-08-13 00:07] LABS: Appearance,Urine Clear (Clear); Bilirubin,Urine Negative (Negative); Blood,Urine Negative (Negative); Color,Urine Light Yellow; Glucose,Urine (UA) Negative (Negative); Ketones,Urine Negative (Negative); Leukocyte Esterase,Urine Negative (Negative); Nitrite,Urine Negative (Negative); PH, Urine 5.5 (5.0-8.0); Protein,Urine Negative (Negative); Urobilinogen,Urine <2.0 mg/dL (<2.0)
[2024-08-13 00:08] LABS: Eosinophils % (A) 3 %; HGB 11.8 gm/dL (13.0-17.5); Lymphocytes % (A) 36 %; MCH 32.5 pg (25.0-35.0); MCHC 32.9 g/dL (31.0-37.0); MCV 98.6 fL (80.0-100.0); Mean Platelet Volume 7.7; Monocytes % (A) 7 %; Neutrophils % (A) 50 %; Platelet Count 168 k/uL (150-450); RBC 3.65 m/uL (4.30-5.90); RDW 13.6 % (11.5-15.5)
[2024-08-13 00:09] LABS: Basophils % (A) 1 %; Eosinophils # (A) 0.2 k/uL (0-0.7); Lymphocytes # (A) 2.2 k/uL (1.0-4.8); Monocytes # (A) 0.4 k/uL (0-1.0)
[2024-08-13] MEDS: SODIUM CHLORIDE 0.9% 1,000 ML IV ONE (01:33)
[2024-08-13 02:01] LABS: Amphetamine Screen,Urine Not Detected (NotDetected); Barbiturate Screen,Urine Not Detected (NotDetected); Benzodiazepines Screen,Urine Not Detected (NotDetected); Cocaine Screen,Urine Not Detected (NotDetected); Methadone Screen, Urine Not Detected (NotDetected); Opiate Screen,Urine Not Detected (NotDetected); Oxycodone Screen, Urine Not Detected (NotDetected); Phencyclidine Screen,Urine Not Detected (NotDetected); Tricyclic Antidepressant,Urine Detected (NotDetected); Urn Cannabinoid Scrn Not Detected (NotDetected)
[2024-08-13 02:03] LABS: Influenza A Not Detected (Not Detectd); Influenza B Not Detected (Not Detectd); RSV Not Detected (Not Detectd)
[2024-08-13] MEDS ORDERED: ACETAMINOPHEN TAB 325 MG TAB PO PRN (02:50)
[2024-08-13] MEDS ORDERED: ONDANSETRON ODT 4 MG TAB PO PRN (02:50)
[2024-08-13] MEDS: QUEtiapine 50 MG TAB PO STA (07:32)
[2024-08-13 13:52] VITALS: BP 143/62; PULSE 68; TEMP 97.4
== END 2024-08-13 13:52 ==
LOC: EC 22:35
DX: R45.851 Suicidal ideations (principal); R44.3 Hallucinations, unspecified; F03.90 Unspecified dementia, unspecified severity, without behavioral disturbance, psychotic disturbance, mood disturbance, and anxiety; Z87.891 Personal history of nicotine dependence; Z88.0 Allergy status to penicillin; Z88.1 Allergy status to other antibiotic agents; Z11.52 Encounter for screening for COVID-19
CPT/HCPCS: 36415; 80053; 80306; 80320; 81003; 85025; 87636; 93005; 99285